=== PATIENT | male | born 1955 | race Caucasian/White ===

== ENCOUNTER 2018-01-11 16:32 | Inpatient (IN) | payer MEDICAID ==
--- NOTE | 2018-01-11 16:39 | EDPHY ---
H & P Time Seen by Provider: 01/11/18 16:38 HPI/ROS: HPI CHIEF COMPLAINT: Left knee pain fall skateboard HISTORY OF PRESENT ILLNESS: This patient is 62-year-old male he is otherwise healthy does not take any daily medications he presents emergency room after he fell while skateboarding. This happened approximately an hour ago he fell on his left knee. States his leg went behind him when he fell. He now has pain 6/ 10 to left knee and proximal tib-fib. Denies any other areas of trauma or pain. He was helmeted. Denies head strike or LOC. Denies chest pain or shortness of breath. He arrives by private vehicle with an obvious swelling and deformity to the left knee. He is distally neurovascular intact. Past Medical History: No significant medical history Past Surgical History: No significant surgical history Social History: Retired, just moved here from [place], denies drugs alcohol tobacco. Family History: Noncontributory ROS REVIEW OF SYSTEMS: A comprehensive 10 point review of systems is otherwise negative aside from elements mentioned in the history of present illness. Exam Constitutional appears well nontoxic no acute distress triage nursing summary reviewed, vital signs reviewed, awake/alert. Eyes normal conjunctivae and sclera, EOMI, PERRLA. HENT normal inspection, atraumatic, moist mucus membranes, no epistaxis, neck supple/ no meningismus, no raccoon eyes. Respiratory clear to auscultation bilaterally, normal breath sounds, no respiratory distress, no wheezing. Cardiovascular rate normal, regular rhythm, no murmur, no edema, distal pulses normal. Gastrointestinal soft, non-tender, no rebound, no guarding, normal bowel sounds, no distension, no pulsatile mass. Genitourinary no CVA tenderness. Musculoskeletal left lower extremity: Obvious swelling and deformity to the left knee and proximal left tib-fib, soft tissue swelling over the lateral left tib-fib, neurovascular intact distally, range of motion but with pain, good distal pulse, good cap refill. no midline vertebral tenderness, full range of motion, no calf swelling, no tenderness of extremities, no meningismus, good pulses, neurovascularly intact. Skin pink, warm, & dry, no rash, skin atraumatic. Neurologic awake, alert and oriented x 3, AAOx3, moves all 4 extremities equally, motor intact, sensory intact, CN II-XII intact, normal cerebellar, normal vision, normal speech. Psychiatric normal mood/affect. Heme/Lymph/Immune no lymphadenopathy. Differential Diagnosis: Includes but is not limited to in a particular order patella fracture, patellar dislocation, knee fracture, knee contusion, tibia fracture, fibula fracture, soft tissue injury, contusion Medical Decision Making: Plan for this patient x-ray left knee and left tib- fib. Re-evaluation: X-ray reviewed of the right knee and right tib-fib: Shows depressed medial tibial plateau fracture. Additionally please see further details of x-ray reading for additional findings. Given the patient's x-ray findings I will consult Orthopedics. 1754: Spoke with Dr. Collins he is requesting an MRI of the joint. I have ordered this. He plans to operate tomorrow morning. He requested the MRI be done in the emergency room. 1800: Discussed extensively about the plan of care with this patient. Recommend hospital admission for pain control, NPO tonight for surgery tomorrow Dr. Collins. Discussed case with Dr. Collins. He requested MRI. I will order this. 1800: Patient be placed in a knee immobilizer for comfort. IV pain medicine has been order 100 mcg IV fentanyl here in emergency room. Compartments are soft at this time. Neurovascularly intact. 180: Spoke with Dr. Han, Agrees to admit. Source: Patient Constitutional: Initial Vital Signs Temperature (C) 36.4 C 01/11/18 16:33 Heart Rate 96 01/11/18 16:33 Respiratory Rate 20 01/11/18 16:33 Blood Pressure 166/84 H 01/11/18 16:33 O2 Sat (%) 97 01/11/18 16:33 O2 Delivery Mode Room Air Allergies/Adverse Reactions: No Known Allergies Allergy (Unverified 01/11/18 16:39) Home Medications: Medication Instructions Recorded Herbals/Supplements -Info Only 1 ea PO DAILY 01/11/18 Medical Decision Making - Data Points Laboratory Results: Laboratory Results 01/11/18 17:45 01/11/18 17:45 Medications Given: Acetaminophen (Tylenol) 1,000 mg PO Q8 [facility] Stop: 07/10/18 19:14 Last Admin: 01/13/18 22:04 Dose: 1,000 mg Aspirin (Aspirin) 325 mg PO DAILY [facility] Stop: 07/12/18 08:59 Last Admin: 01/13/18 08:36 Dose: 325 mg Enoxaparin Sodium (Lovenox) 40 mg SC DAILY [facility] Stop: 07/12/18 09:59 Last Admin: 01/13/18 14:06 Dose: 40 mg Hydromorphone/Sodium Chloride (Hydromorphone) 0.2 - 0.4 mg IVP Q4HRS PRN PRN Reason: Pain, Severe Unable to Take PO Stop: 01/21/18 19:14 Last Admin: 01/13/18 19:53 Dose: 0.4 mg Sodium Chloride (Ns) 1,000 mls @ 100 mls/hr IV CONT ANNE MARIE Stop: 07/11/18 07:14 Last Admin: 01/12/18 06:27 Dose: 1,000 mls Ondansetron HCl (Zofran) 4 mg IVP Q4HRS PRN PRN Reason: Nausea/Vomiting, Can't Take PO Stop: 07/10/18 19:14 Last Admin: 01/12/18 11:24 Dose: 4 mg Oxycodone HCl (Oxycodone Ir) 5 - 15 mg PO Q3HRS PRN PRN Reason: Pain, Severe Able to Take PO Stop: 01/21/18 19:14 Last Admin: 01/13/18 18:10 Dose: 15 mg Polyethylene Glycol (Miralax) 17 gm PO DAILY PRN; Protocol PRN Reason: Constipation Stop: 07/11/18 18:33 Last Admin: 01/13/18 08:38 Dose: 17 gm Potassium Chloride (Klor Packets) 20 meq PO DAILY [facility] Stop: 07/10/18 19:29 Last Admin: 01/13/18 08:36 Dose: 20 meq Senna/Docusate Sodium (Senokot-S) 1 - 2 tab PO BID ANNE MARIE PRN Reason: Protocol Stop: 07/11/18 20:59 Last Admin: 01/13/18 22:07 Dose: 2 tab Discontinued Medications Bupivacaine HCl/Epinephrine Bitart (Bupivacaine/Epi) Confirm Administered Dose 30 ml .ROUTE .STK-MED ONE Stop: 01/12/18 07:21 Last Admin: 01/12/18 08:25 Dose: 10 ml Cyclobenzaprine HCl (Flexeril) 10 mg PO TID [facility] Stop: 07/11/18 12:59 Last Admin: 01/12/18 12:54 Dose: 10 mg Fentanyl (Sublimaze) 100 mcg IVP EDNOW ONE Stop: 01/11/18 17:38 Last Admin: 01/11/18 17:47 Dose: 100 mcg Fentanyl (Sublimaze) 25 - 50 mcg IVP Q5M PRN PRN Reason: PAIN. Stop: 01/22/18 10:22 Last Admin: 01/12/18 10:20 Dose: 50 mcg Hydromorphone HCl (Dilaudid) 1 mg IVP EDNOW ONE Stop: 01/11/18 18:06 Last Admin: 01/11/18 18:07 Dose: 1 mg Hydromorphone HCl (Dilaudid) 1 mg IVP EDNOW ONE Stop: 01/11/18 18:06 Last Admin: 01/11/18 18:11 Dose: Not Given Hydromorphone HCl (Dilaudid) 1 mg IVP EDNOW ONE Stop: 01/11/18 19:47 Last Admin: 01/11/18 20:48 Dose: 1 mg Hydromorphone/Sodium Chloride (Hydromorphone) 0.2 - 0.4 mg IVP Q10M PRN PRN Reason: PAIN. Stop: 01/22/18 10:21 Last Admin: 01/12/18 10:00 Dose: 0.2 mg Sodium Chloride (Ns) 1,000 mls @ 0 mls/hr IV EDNOW ONE; Wide Open PRN Reason: Protocol Stop: 01/11/18 17:38 Last Admin: 01/11/18 17:47 Dose: 1,000 mls Cefazolin Sodium (Cefazolin Syringe) 2 gm in 20 mls @ 200 mls/hr IVP ONCALL ONE Stop: 01/11/18 21:35 Last Admin: 01/12/18 08:14 Dose: 20 mls Lactated Ringer's (Lr) 1,000 mls @ 0 mls/hr IV ONCE ONE PRN Reason: Per Protocol Stop: 01/12/18 07:45 Last Admin: 01/12/18 10:42 Dose: 1,000 mls Cefazolin Sodium (Cefazolin Syringe) 2 gm in 20 mls @ 200 mls/hr IVP Q8HRS ANNE MARIE PRN Reason: Protocol Stop: 01/13/18 06:05 Last Admin: 01/13/18 05:58 Dose: 20 mls Lorazepam (Ativan Injection) 1 mg IVP EDNOW ONE Stop: 01/11/18 19:31 Last Admin: 01/11/18 19:30 Dose: 1 mg Methocarbamol (Robaxin) 750 mg PO TID [facility] Stop: 07/11/18 15:59 Last Admin: 01/13/18 08:36 Dose: 750 mg Methocarbamol (Robaxin) 1,000 mg PO TID [facility] Stop: 07/12/18 11:59 Last Admin: 01/13/18 16:23 Dose: Not Given Ondansetron HCl (Zofran) 4 mg IVP EDNOW ONE Stop: 01/11/18 17:38 Last Admin: 01/11/18 17:46 Dose: 4 mg Ondansetron HCl (Zofran) 4 mg IVP EDNOW ONE Stop: 01/11/18 19:47 Last Admin: 01/11/18 22:32 Dose: Not Given Oxycodone HCl (Oxycodone Ir) 5 - 10 mg PO Q3HRS PRN PRN Reason: Pain, Severe Able to Take PO Stop: 01/21/18 19:14 Last Admin: 01/12/18 22:13 Dose: 10 mg Departure - Departure Disposition: [facility] Acute Clinical Impression: Tibial plateau fracture, left Qualifiers: Encounter type: initial encounter Fracture type: closed Qualified Code(s): S82.142A - Displaced bicondylar fracture of left tibia, initial encounter for closed fracture Condition: Fair
[2018-01-11] MEDS ORDERED: ONDANSETRON 4 MG/2 ML VIAL IVP ONE ×2 (17:37→19:46)
[2018-01-11] MEDS ORDERED: fentaNYL 100 MCG/2 ML INJ IVP ONE (17:37)
[2018-01-11] MEDS ORDERED: NS 1,000 ML IV ONE (17:37)
[2018-01-11 17:54] LABS: PLATELET COUNT 155 10^3/uL (150-400)
[2018-01-11] MEDS ORDERED: HYDROmorphONE/DILAUDID 2 MG/ML INJ ONE (18:04)
[2018-01-11] MEDS ORDERED: HYDROmorphONE/DILAUDID 2 MG/ML INJ IVP ONE ×3 (18:05→19:46)
[2018-01-11 18:06] LABS: INR 1.02 (0.83-1.16); PROTIME(PATIENT) 13.6 SEC (12.0-15.0)
[2018-01-11] MEDS ORDERED: ONDANSETRON DISINTEGRATING 4 MG TAB PO PRN (19:15)
[2018-01-11] MEDS ORDERED: LORazepam 2 MG/ML INJ ONE (19:27)
[2018-01-11] MEDS ORDERED: LORazepam 2 MG/ML INJ IVP ONE (19:30)
--- NOTE | 2018-01-11 19:48 | GHP ---
[f rep st] HISTORY AND PHYSICAL DATE OF ADMISSION: 01/11/2018 HISTORY OF PRESENT ILLNESS: The patient is a 62-year-old gentleman with minimal past medical history who presents with a mechanical fall. He was riding a skateboard. He twisted and fell landing on hi s left knee. Films in the ER demonstrate a left-sided tibial plateau fracture. The patient describes good exercise tolerance with no cardiopulmonary symptoms at greater than 4 METS . He has no previous cardiac history nor does he have significant risk factors for coronary artery d isease. No fever, chills, nausea, vomiting, diarrhea. No bleeding problems. REVIEW OF SYSTEMS: Complete 10-point review of systems conducted. Negative except as noted in the H istory of Present Illness. PAST MEDICAL HISTORY: An episode of left-sided weakness that lasted for 3 hours and resolved spontan eously that had subsequent negative workup. None of that is available to me. ALLERGIES: None. HOME MEDICATIONS: None. 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 He quit drinking 2 years ago. He is a lifelon g nonsmoker. FAMILY HISTORY: Reviewed and unremarkable. PHYSICAL EXAMINATION: VITAL SIGNS: Temp 36.4, blood pressure 166/84, pulse 96, breathing 20 times a minute, 97% on room air. GENERAL: No acute distress. Sclerae anicteric. Oropharynx clear. Mucou s membranes moist. NECK: Supple without lymphadenopathy or JVD. LUNGS: Clear to auscultation bila terally. HEART: S1, S2. ABDOMEN: Soft, nontender, nondistended. EXTREMITIES: Left lower extremi ty is edematous and tender. There are a few minor abrasions but no significant lacerations. His fo ot is neurovascularly intact. LABORATORY: Sodium 141, potassium 3.2, chloride 105, bicarb 20, BUN 14, creatinine 0.8. Coags ester l. White count 16.6, hematocrit 43, platelets are 155,000. Tib-fib x-ray shows depressed comminuted lateral tibia plateau fracture and intra-articular fracture seen essentially medial of the midline as well as a longitudinal cortical avulsion fracture of the po sterior medial femoral condyle. I have discussed the case with Dr. Elmer Olivas. ASSESSMENT/PLAN: A 62-year-old gentleman with a tibial plateau fracture. 1. Tibial plateau fracture. Operative management is indicated. Dr. Tamayo will see him and operate on him tomorrow. 2. Preoperative cardiac evaluation. The patient can achieve greater than 4 METS with no cardiopulmo nary symptoms in the ER without further workup or intervention. EKG is pending. 3. Hypokalemia. Will replete now. 4. Pain. Scheduled Tylenol, p.r.n., oxycodone and Dilaudid. 5. Prophylaxis. Pharmacologic prophylaxis is indicated. Will hold tonight given need for surgery t omorrow. DISPOSITION: Inpatient status. /[id number]/MODL
[2018-01-11] MEDS: ONDANSETRON 4 MG/2 ML VIAL IVP PRN (20:48)
--- NOTE | 2018-01-11 20:53 | CPEKG ---
Heart Rate: 94 RR Interval: 638 P-R Interval: 176 QRSD Interval: 98 QT Interval: 376 QTC Interval: 471 P Broadway: 76 QRS Broadway: 24 T Wave Broadway: 22 EKG Severity - NORMAL ECG - EKG Impression: SINUS RHYTHM Electronically Signed By: Elmer Olivas 11-Jan-2018 22:29:51
[2018-01-11] MEDS ORDERED: ceFAZolin 2 GM/DEXTROSE 100 ML IV ONE (21:24)
[2018-01-11] MEDS ORDERED: ceFAZolin 2 GM/SWFI 2 GM/20 ML SYR IVP ONE (21:30)
--- NOTE | 2018-01-11 21:53 | GHP ---
[f rep st] PREOP HISTORY AND PHYSICAL DATE OF ADMISSION: 01/11/2018 REPORT TITLE: ORTHOPEDIC CONSULTATION BODY AFTER REPORT TITLE: DIAGNOSES: 1. Left tibial plateau fracture. 2. Left inferior pole fracture to the patella. 3. Medial collateral ligament strain with small cortical avulsion fracture off distal medial femoral epicondylar area. 4. Posterior cruciate ligament avulsion off posterior femur. 5. Probable lateral meniscus tear. HISTORY OF PRESENT ILLNESS: Patient is a 62-year-old gentleman who was otherwise healthy. 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 He was on his skateboard when he fell going over 30 miles an hour. His leg jemal t behind him, and he twisted his knee. He had severe pain and was unable to bear weight. He was hel meted and did not strike his head and did not lose consciousness. On admission, he was complaining o f some low back pain. His main complaint was severe left knee pain. PAST MEDICAL HISTORY: Insignificant. PAST SURGICAL HISTORY: None. SOCIAL HISTORY: Single, retired, has a son who lives elsewhere. REVIEW OF SYSTEMS: Negative. PHYSICAL EXAM: GENERAL APPEARANCE: Patient alert, oriented, cooperative with exam. CHEST: Clear. CARDIAC: Regular rate and rhythm. ABDOMEN: Nontender. EXTREMITIES: Examination of the lower ext remities reveals 1+ dorsalis pedis and posterior tibialis pulse on the left, 2+ on the right. Swolle n right knee, mildly angulated at the metaphyseal area. Tenderness to palpation around the left knee . 2+ effusion. IMAGING STUDIES: The films show a depressed, comminuted, lateral tibial plateau fracture that is fra gmented. There is a fracture that extends medially toward the medial tibial spine and to the opposit e side of the ACL and tibial spine attachment. There is an avulsion fracture off the posterior femor al condylar area suggestive for a PCL avulsion. There is a fracture off the inferior patella where t he patella originates. It is not displaced. There is probable avulsion injury of medial collateral ligament with a small cortical infarction off the medial femoral condyle. ASSESSMENT: Severe lateral tibial plateau fracture that will require open reduction and internal fix ation to reestablish the articular congruency. Intraoperative evaluation will be performed to assess integrity of the cruciates and medial collateral ligament which I suspect is partially disrupted at its femoral attachment with a small cortical avulsion fracture in the area. The posterior cruciate l igament is also disrupted off the posterior aspect of the femur but not significantly displaced. Thi s will not be addressed in the immediate operative setting. Assessment will be made of the infrapate llar tendon in its proximal attachment where there is a very small cortical avulsion fracture off the tip of the patella. There is a possibility of the tibial plateau fracture requiring an iliac crest bone graft and/or allograft to reconstitute cavitation in the proximal tibial metaphysis after elevat ion of the bone fragments. Patient will be placed n.p.o. Anticipate surgical treatment tomorrow. W ill ice and elevate tonight. /[id number]/MODL
[2018-01-11] MEDS: ACETAMINOPHEN 500 MG TAB PO SCH ×2 (22:27→22:31)
[2018-01-11] MEDS: oxyCODONE IR 5 MG TAB PO PRN (22:28)
[2018-01-11] MEDS: POTASSIUM CL 20 MEQ PKT PO SCH (22:29)
--- NOTE | 2018-01-12 00:52 | PDMN ---
Medical Necessity Medical necessity: C/M review: Patient meets INPT crtieria under [facility] Musculoskeletal disease GRG (Left tibial plateau fracture): Acute depressed comminuted left lateral tibia plateau fracture and intra-articular fracture seen essentially medial of the midline as well as a longtitudinal cortical avulsion fracture f the posterior medical femoral condyle on xray, hypokalemia, K 3.2 requiring planned 01/12/2018 surgical intervention, ongoing preop IV fluids , oral potassium repletion, pain management - scheduled oral Tylenol, and oral oxycodone, IV Dilaudid as needed MD anticipates > 2 MN LOS for ongoing med nec for eval and TX of above.
[2018-01-12] MEDS: ACETAMINOPHEN 500 MG TAB PO SCH ×3 (06:26→22:13)
[2018-01-12] MEDS ORDERED: NS 1,000 ML IV SCH (07:15)
[2018-01-12] MEDS ORDERED: BUPIVACAINE/EPI 0.5% 30 ML SDV ONE (07:20)
[2018-01-12] MEDS ORDERED: LR 1,000 ML IV ONE (07:44)
[2018-01-12] MEDS ORDERED: MIDAZOLAM 2 MG/2 ML VIAL ONE (07:54)
[2018-01-12] MEDS ORDERED: PROPOFOL 200 MG/20 ML VIAL ONE (07:55)
[2018-01-12] MEDS ORDERED: fentaNYL 100 MCG/2 ML INJ ONE ×2 (07:55→09:53)
--- NOTE | 2018-01-12 08:19 | PDANEPAE ---
ANE Past Medical History - Pulmonary History Hx Oxygen in Use at Home: No Hx Sleep Apnea: No Sleep Apnea Screening Result - Last Documented: Negative - Endocrine History Hx Diabetes: No ANE Review of Systems Review of Systems: ANE Patient History - Allergies Allergies/Adverse Reactions: No Known Allergies Allergy (Unverified 01/11/18 16:39) - Home Medications Home Medications: Herbals/Supplements -Info Only 1 ea PO DAILY 01/11/18 [Last Taken 01/11/18] - NPO status NPO Since - Liquids (Date): 01/12/18 NPO Since - Liquids (Time): 00:00 NPO Since - Solids (Date): 01/12/18 NPO Since - Solids (Time): 00:00 - Anes Hx Anes Hx: no prior problems - Smoking Hx Smoking Status: Never smoked ANE Labs/Vital Signs - Labs Result Diagrams: 01/11/18 17:45 01/11/18 17:45 - Vital Signs Blood Pressure: 94/55 Heart Rate: 89 Respiratory Rate: 18 O2 Sat (%): 98 Height: 182.88 cm Weight: 61.235 kg ANE Physical Exam - Airway Mallampati Score: Class 1 - ASA Status ASA Status: I, E ANE Anesthesia Plan Anesthesia Plan: GA w LMA
[2018-01-12] MEDS: POTASSIUM CL 20 MEQ PKT PO SCH ×2 (08:45→17:51)
[2018-01-12] MEDS ORDERED: MEPERIDINE 25 MG/ML SYR IVP PRN (09:11)
[2018-01-12] MEDS ORDERED: PROMETHAZINE HCL 25 MG/ML INJ IVP PRN (09:11)
[2018-01-12] MEDS ORDERED: NALOXONE HCL 0.4 MG/ML INJ IVP PRN (09:11)
[2018-01-12] MEDS ORDERED: LR 500 ML IV PRN (09:11)
--- NOTE | 2018-01-12 09:12 | POSTANESTH ---
Post Anesthetic Evaluation Cardiovascular Status: Normal, Stable Respiratory Status: Normal, Stable Level of Consciousness/Mental Status: Can Participate in Eval Pain Control: Adequate, Prn Tx Ordered Nausea/Vomiting Control: Adequate, Prn Tx Ordered Complications Possibly Related to Anesthesia: None Noted
[2018-01-12] MEDS ORDERED: HYDROmorphONE/DILAUDID 2 MG/ML INJ ONE (09:17)
[2018-01-12] MEDS: HYDROmorphone HCL/NS 0.5 MG/ML SYR IVP PRN ×8 (09:20→16:45)
--- NOTE | 2018-01-12 09:20 | POSTOPPROG ---
Post Op Note Date of Operation: 01/12/18 Surgeon: Ulises oCllins Anesthesia: GET(General Endotracheal) Pre-op Diagnosis: Left Tibial Plateau Fracture Post-op Diagnosis: Left Tibial Plateau Fracture Procedure: Left Leg External Fixator for Tibial Plateau fracture bridging Inf/Abcess present in the surg proc area at time of surgery?: No Complications: None Specimen(s): None
--- NOTE | 2018-01-12 09:50 | GOP ---
[f rep st] OPERATIVE REPORT DATE OF OPERATION: 01/12/2018 SURGEON: Ulises Collins MD HOSPITAL FOOD SERVICE WORKER: Mary Mcgraw PA-C. ANESTHESIA: General. PREOPERATIVE DIAGNOSIS: Left comminuted tibial plateau fracture. POSTOPERATIVE DIAGNOSIS: Left comminuted tibial plateau fracture. PROCEDURE PERFORMED: Application of external fixator, left lower extremity (bridging femoral to tibi a). FINDINGS: DESCRIPTION OF PROCEDURE: Patient was taken to the operating room, administered general anesthesia, placed in the supine position. The left lower extremity was prepped and draped in normal sterile fas hion. Using the FluoroScan, we positioned our initial external fixator pins. They were placed throu gh the pin guide and the skin was marked. The incisions were made with a 15 blade. The pins were th en driven across the proximal femur x2. The pins were then placed in the tibia. Two incisions were made. The pin guide was used to drill the pins across the tibia. The fixator clamps were placed on the pins and tightened down. The 2 bridging clamps were then placed with the rods. The tibia was al igned using distraction. The clamps were then tightened down further. The pins were cut down to the appropriate length. Pin protectors were placed. The sterile compression dressing was applied. The posterior splint was applied. The patient tolerated procedure well, was transferred back to [facility] in stable condition. No operative complications. COMPLICATIONS: None. /[id number]/MODL
[2018-01-12] MEDS: fentaNYL 100 MCG/2 ML INJ IVP PRN ×2 (09:55→10:20)
[2018-01-12] MEDS: ONDANSETRON 4 MG/2 ML VIAL IVP PRN (11:24)
[2018-01-12] MEDS: oxyCODONE IR 5 MG TAB PO PRN ×4 (11:29→22:13)
[2018-01-12] MEDS ORDERED: CYCLOBENZAPRINE 10 MG TAB PO SCH (13:00)
--- NOTE | 2018-01-12 13:24 | HOSPPROG ---
Hospitalist Progress Note Assessment/Plan: Johnny is a 62-y/o M with no significant PMH but does report fhx osteoporosis. Mechanical fall off his skateboard with resultant L tibial plateau fx. #. L tibial plateau fx: reviewed Dr. Collins's consult and op notes and appreciate assistance also noted avulsion fx sugestive of PCL avulsion and patellar avulsion/MCL in currently in external fixator needs PT/OT consults #. pain: due to above will change from Flexeril to Robaxin due to patient's somnolence continue Oxy IR and Tylenol #. leukocytosis: likely in response to stress no e/o acute infection will recheck #. hypokalemia: on repletion protocol #. LOS: inpt for ongoing therapy and pain control Subjective: Notes L knee pain and fatigue. Objective: Vital Signs Temp Pulse Resp BP Pulse Ox 97.5 F 69 16 97/58 L 94 01/12/18 12:05 01/12/18 12:05 01/12/18 12:05 01/12/18 12:05 01/12/18 12:05 01/11/18 01/12/18 01/13/18 05:59 05:59 05:59 Intake Total 1120 Output Total 1000 5 Balance -1000 1115 PT 13.6 SEC (12.0-15.0) 01/11/18 17:45 INR 1.02 (0.83-1.16) 01/11/18 17:45 - Physical Exam Constitutional: appears nourished Eyes: PERRL Ears, Nose, Mouth, Throat: moist mucous membranes Cardiovascular: regular rate and rhythym, no murmur, rub, or gallop Respiratory: no respiratory distress Gastrointestinal: normoactive bowel sounds, soft, non-tender abdomen Neurologic: AAOx3 Psychiatric: interacting appropriately ICD10 Worksheet Patient Problems: Problems Problem Status Onset Tibial plateau fracture, left Acute
--- NOTE | 2018-01-12 14:12 | ASMTCMCOM ---
CM Note CM Note Notes: Pt was admitted with a L tibial plateau fx after falling off his skateboard. He had surgery and is currently in an external fixator with more surgery planned when swelling goes down. PT/OT evals pending. He goes by "Johnny." Pt is retired and moved to [place] relatively recently. 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 He lives alone in an apt and has no health insurance. His Medicare starts in Aug 2018. An email was sent to [employer] to screen him for Medicaid eligibility. He stated he has 2 neighbors who will be helpful to him and are listed in demographics. CM willf follow for any d/c needs. Date Signed: 01/12/2018 02:12 PM Electronically Signed By:CHEVY Izaguirre
[2018-01-12] MEDS: METHOCARBAMOL 750 MG TAB PO SCH ×2 (15:04→22:13)
[2018-01-12] MEDS: ceFAZolin 2 GM/SWFI 2 GM/20 ML SYR IVP SCH ×2 (15:05→22:30)
[2018-01-12] MEDS ORDERED: LACTULOSE 20 GM/30 ML UDCUP PO PRN (18:34)
[2018-01-12] MEDS ORDERED: BISACODYL 10 MG SUPP PR PRN (18:34)
[2018-01-12] MEDS ORDERED: MAGNESIUM HYDROXIDE 30 ML UDCUP PO PRN (18:34)
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
[2018-01-12] MEDS: SENNOSIDES/DOCUSATE SODIUM TAB PO SCH (22:30)
[2018-01-12] MEDS ORDERED: chlorproMAZINE HCL 25 MG TAB PO PRN (22:51)
[2018-01-13 04:50] LABS: PLATELET COUNT 83 10^3/uL (150-400)
[2018-01-13] MEDS: ACETAMINOPHEN 500 MG TAB PO SCH ×3 (05:58→22:04)
[2018-01-13] MEDS: ceFAZolin 2 GM/SWFI 2 GM/20 ML SYR IVP SCH (05:58)
[2018-01-13] MEDS: HYDROmorphone HCL/NS 0.5 MG/ML SYR IVP PRN ×2 (06:48→19:53)
--- NOTE | 2018-01-13 07:59 | SOAPPROG ---
SOAP Progress Note Assessment/Plan: Assessment: new finding of left wrist pain. pain management difficult. no evidence of compartment syndrome Plan: xray left wrist keep elevated check CT brace back if uncomfortable 01/13/18 07:56 Subjective: Complaints off left wrist pain and leg pain Objective: Vital Signs Temp Pulse Resp BP Pulse Ox 36.8 C 92 16 101/58 L 94 01/13/18 07:39 01/13/18 07:39 01/13/18 07:39 01/13/18 07:39 01/13/18 07:39 Laboratory Results 01/13/18 04:15 01/12/18 01/13/18 01/14/18 05:59 05:59 05:59 Intake Total 3520 Output Total 1000 3405 Balance -1000 115 PT 13.6 SEC (12.0-15.0) 01/11/18 17:45 INR 1.02 (0.83-1.16) 01/11/18 17:45 VSS \ CSMT intact, Wrist is painful and has mild swelling ICD10 Worksheet Patient Problems: Problems Problem Status Onset Tibial plateau fracture, left Acute
[2018-01-13] MEDS: POTASSIUM CL 20 MEQ PKT PO SCH (08:36)
[2018-01-13] MEDS: ASPIRIN 325 MG TAB PO SCH (08:36)
[2018-01-13] MEDS: SENNOSIDES/DOCUSATE SODIUM TAB PO SCH ×2 (08:36→22:07)
[2018-01-13] MEDS: METHOCARBAMOL 750 MG TAB PO SCH (08:36)
[2018-01-13] MEDS: oxyCODONE IR 5 MG TAB PO PRN ×2 (08:37→18:10)
[2018-01-13] MEDS: POLYETHYLENE GLYCOL 3350 17 GM PKT PO PRN (08:38)
--- NOTE | 2018-01-13 09:33 | HOSPPROG ---
Hospitalist Progress Note Assessment/Plan: Johnny is a 62-y/o M with no significant PMH but does report fhx osteoporosis. Mechanical fall off his skateboard with resultant L tibial plateau fx. #. L tibial plateau fx: reviewed Dr. Collins's consult and op notes and appreciate assistance also noted avulsion fx sugestive of PCL avulsion and patellar avulsion/MCL in currently in external fixator needs PT/OT consults #. pain: due to above will change from Flexeril to Robaxin due to patient's somnolence continue Oxy IR and Tylenol #. L wrist pain: will start with XR and consider CT if it fails to identify fx #. L2 compression fx: appreciate NSG seeing they recommend Janie brace for pain control only pt reports pain is currently tolerable #. leukocytosis: likely in response to stress no e/o acute infection normalized on recheck #. anemia: likely ABL expected postop will recheck tomorrow #. thrombocytopenia: will dose Lovenox today and recheck tomorrow #. hypokalemia: on repletion protocol #. DVT ppx: start Enoxaparin now #. financial: pt uninsured requesting CM to help with possible emergency Medicaid or other resources #. LOS: inpt for ongoing therapy and pain control Subjective: Pain is under control currently. Back hurts with some movements. Objective: Vital Signs Temp Pulse Resp BP Pulse Ox 98.2 F 92 16 101/58 L 94 01/13/18 07:39 01/13/18 07:39 01/13/18 07:39 01/13/18 07:39 01/13/18 07:39 Laboratory Results 01/13/18 04:15 01/13/18 04:15 01/12/18 01/13/18 01/14/18 05:59 05:59 05:59 Intake Total 3520 Output Total 1000 3405 Balance -1000 115 PT 13.6 SEC (12.0-15.0) 01/11/18 17:45 INR 1.02 (0.83-1.16) 01/11/18 17:45 - Physical Exam Constitutional: no apparent distress, appears nourished Eyes: PERRL, anicteric sclera Cardiovascular: regular rate and rhythym, no murmur, rub, or gallop Respiratory: no respiratory distress Gastrointestinal: normoactive bowel sounds, soft, non-tender abdomen Skin: warm, normal color, other (L leg wrapped and with external fixator) Neurologic: AAOx3 Psychiatric: interacting appropriately ICD10 Worksheet Patient Problems: Problems Problem Status Onset Tibial plateau fracture, left Acute
[2018-01-13] MEDS ORDERED: METHOCARBAMOL 750 MG TAB PO SCH (11:50)
[2018-01-13] MEDS: METHOCARBAMOL 500 MG TAB PO SCH ×3 (12:51→22:00)
[2018-01-13] MEDS: ENOXAPARIN 40 MG/0.4 ML SYR SC SCH (14:06)
[2018-01-14] MEDS: ACETAMINOPHEN 500 MG TAB PO SCH ×3 (05:24→21:43)
[2018-01-14 05:31] LABS: PLATELET COUNT 79 10^3/uL (150-400)
--- NOTE | 2018-01-14 07:49 | SOAPPROG ---
SOAP Progress Note Assessment/Plan: Assessment: new finding of left wrist pain. XRAYS NEGATIVE. pain management difficult. no evidence of compartment syndrome Plan: xray left wrist, NEGATIVE. WILL GET SUPPORT FOR SPRAIN keep LEG elevated brace back if uncomfortable SOCIAL SERVICE CONSULT ANTICIPATE DC TO REHAB HE HAS POOR MOBILITY SURGERY IN 10 DAYS ONCE SWELLING SUBSIDES 01/13/18 07:56 01/14/18 07:46 Subjective: C/O PAIN AROUND PINS WHEN MOVING WRIST STILL UNCOMFORTABLE BACK IS BETTER BUT STILL UNCOMFORTABLE WHEN HE TRIES TO GET UP Objective: Vital Signs Temp Pulse Resp BP Pulse Ox 36.4 C 96 16 103/56 L 95 01/14/18 07:32 01/14/18 07:32 01/14/18 07:32 01/14/18 07:32 01/14/18 07:32 Laboratory Results 01/14/18 04:27 01/13/18 04:15 01/13/18 01/14/18 01/15/18 05:59 05:59 05:59 Intake Total 3520 1500 650 Output Total 3405 2400 Balance 115 -900 650 PT 13.6 SEC (12.0-15.0) 01/11/18 17:45 INR 1.02 (0.83-1.16) 01/11/18 17:45 CSMT OK MOVES TOES WELL VERY ANXIOUS ICD10 Worksheet Patient Problems: Problems Problem Status Onset Tibial plateau fracture, left Acute
[2018-01-14] MEDS: ENOXAPARIN 40 MG/0.4 ML SYR SC SCH (08:10)
[2018-01-14] MEDS: SENNOSIDES/DOCUSATE SODIUM TAB PO SCH ×2 (08:12→21:44)
[2018-01-14] MEDS: METHOCARBAMOL 500 MG TAB PO SCH ×3 (08:14→21:43)
[2018-01-14] MEDS: ASPIRIN 325 MG TAB PO SCH (08:14)
[2018-01-14] MEDS: oxyCODONE IR 5 MG TAB PO PRN ×4 (08:16→21:43)
[2018-01-14] MEDS: POTASSIUM CL 20 MEQ PKT PO SCH (08:16)
--- NOTE | 2018-01-14 08:28 | HOSPPROG ---
Hospitalist Progress Note Assessment/Plan: Johnny is a 62-y/o M with no significant PMH but does report fhx osteoporosis. Mechanical fall off his skateboard with resultant L tibial plateau fx. Today is my first encounter with the patient, chart reviewed. #. L comminuted tibial plateau fx: reviewed Dr. Collins's consult and op notes and appreciate assistance also noted avulsion fx suggestive of PCL avulsion and patellar avulsion/MCL in s/p external fixator placement therapies are recommending SNF plan is for surgery in 10 days when swelling decreases #. pain: due to above will change from Flexeril to Robaxin due to patient's somnolence continue Oxy IR and Tylenol #. L wrist pain: x ray shows nothing acute #. L2 compression fx: appreciate NSG seeing they recommend Janie brace for pain control only pt reports pain is currently tolerable #. leukocytosis: likely in response to stress no e/o acute infection normalized on recheck #. anemia: stable #. thrombocytopenia: ongoing #. hypokalemia: on repletion protocol #. DVT ppx: Enoxaparin #. dispo; very difficult situation, patient is relatively new to the [facility]. Hasn't establish a local support system/ He lives alone, has stairs to go up and is NWB to left lower extremity. Reviewed with CM because he is uninsured. Subjective: Johnny said pain gets out of control easily. Tearful about being uninsured, worried about bills, how he will get food. Objective: Vital Signs Temp Pulse Resp BP Pulse Ox 36.4 C 96 16 103/56 L 95 01/14/18 07:32 01/14/18 07:32 01/14/18 07:32 01/14/18 07:32 01/14/18 07:32 Laboratory Results 01/14/18 04:27 01/13/18 04:15 01/13/18 01/14/18 01/15/18 05:59 05:59 05:59 Intake Total 3520 1500 650 Output Total 3405 2400 Balance 115 -900 650 PT 13.6 SEC (12.0-15.0) 01/11/18 17:45 INR 1.02 (0.83-1.16) 01/11/18 17:45 - Physical Exam Constitutional: uncomfortable, other (thin), No not in pain Eyes: PERRL Ears, Nose, Mouth, Throat: hearing normal Respiratory: no respiratory distress Skin: warm Musculoskeletal: generalized weakness Neurologic: AAOx3 Psychiatric: interacting appropriately, depressed ICD10 Worksheet Patient Problems: Problems Problem Status Onset Tibial plateau fracture, left Acute
--- NOTE | 2018-01-14 15:10 | ASMTCMCOM ---
CM Note CM Note Notes: Pt approved for Medicaid, pt agreeable to 30 day Medicaid SNF stay. ULTC 100 submitted to [facility] today and referrals sent to Joy Harmon and Guillermo Mahmood. CM to follow. Date Signed: 01/14/2018 03:09 PM Electronically Signed By:CHEVY Lynch
[2018-01-15] MEDS: ACETAMINOPHEN 500 MG TAB PO SCH ×4 (06:37→21:14)
[2018-01-15] MEDS: oxyCODONE IR 5 MG TAB PO PRN ×4 (07:15→16:53)
[2018-01-15] MEDS: ASPIRIN 325 MG TAB PO SCH (08:48)
[2018-01-15] MEDS: SENNOSIDES/DOCUSATE SODIUM TAB PO SCH ×2 (08:48→21:14)
[2018-01-15] MEDS: POTASSIUM CL 20 MEQ PKT PO SCH (08:48)
[2018-01-15] MEDS: ENOXAPARIN 40 MG/0.4 ML SYR SC SCH (08:48)
[2018-01-15] MEDS: METHOCARBAMOL 500 MG TAB PO SCH ×3 (08:48→21:14)
--- NOTE | 2018-01-15 09:42 | HOSPPROG ---
Hospitalist Progress Note Assessment/Plan: Johnny is a 62-y/o M with no significant PMH but does report fhx osteoporosis. Mechanical fall off his skateboard with resultant L tibial plateau fx. #. L comminuted tibial plateau fx: reviewed Dr. Collins's consult and op notes and appreciate assistance also noted avulsion fx suggestive of PCL avulsion and patellar avulsion/MCL in s/p external fixator placement therapies are recommending SNF plan is for surgery in 10 days when swelling decreases #. pain: due to above will change from Flexeril to Robaxin due to patient's somnolence continue Oxy IR and Tylenol #. L wrist pain: x ray shows nothing acute #. L2 compression fx: appreciate NSG seeing they recommend Janie brace for pain control only pt reports pain is currently tolerable #. leukocytosis: likely in response to stress no e/o acute infection normalized on recheck #. anemia: stable #. thrombocytopenia: ongoing #. hypokalemia: on repletion protocol #. DVT ppx: Enoxaparin #. dispo: pending, Medicaid hopefully, further discuss w CM, will check cbc and K level in a.m. Subjective: Johnny says he can tolerate his pain when less than 5. Not c/o pain during my evaluation Objective: Vital Signs Temp Pulse Resp BP Pulse Ox 36.5 C 97 16 89/59 L 97 01/15/18 07:22 01/15/18 07:22 01/15/18 07:22 01/15/18 07:22 01/15/18 07:22 Laboratory Results 01/14/18 04:27 01/13/18 04:15 01/14/18 01/15/18 01/16/18 05:59 05:59 05:59 Intake Total 1500 2050 Output Total 2400 2800 Balance -900 -750 PT 13.6 SEC (12.0-15.0) 01/11/18 17:45 INR 1.02 (0.83-1.16) 01/11/18 17:45 - Physical Exam Constitutional: other (thin) Eyes: PERRL Ears, Nose, Mouth, Throat: hearing normal Cardiovascular: regular rate and rhythym Respiratory: no respiratory distress Gastrointestinal: normoactive bowel sounds Skin: warm, other (good cms on left foot) Musculoskeletal: generalized weakness Neurologic: AAOx3 Psychiatric: interacting appropriately ICD10 Worksheet Patient Problems: Problems Problem Status Onset Tibial plateau fracture, left Acute
--- NOTE | 2018-01-15 12:09 | SOAPPROG ---
SOAP Progress Note Assessment/Plan: Assessment/Plan: Johnny is a 62-y/o M with no significant PMH but does report fhx osteoporosis. Mechanical fall off his skateboard with resultant L tibial plateau fx s/p Ex- fix by Dr. Collins. #. L comminuted tibial plateau fx: maintain ex-fix. Clean around pin sites with dry dressing. No signs of infection/compartment syndrome. NWB to left lower extremity. Also noted avulsion fx suggestive of PCL avulsion and patellar avulsion/MCL Therapies are recommending SNF Plan is for surgery in 10 days when swelling decreases #. DVT prophylaxis: SCDs on non op leg, ELSA hose, IS, Lovenox. #. pain: well controlled. #. L wrist pain: x ray shows no fractures, malalignments or deformities. #. L2 compression fx: appreciate NSG seeing they recommend Janie brace for pain control only #. leukocytosis: continue plan per hospitalists. #. anemia: continue plan per hospitalists. #. thrombocytopenia: ongoing #. hypokalemia: on repletion protocol #. dispo: pending, Medicaid hopefully, further discuss w Patient/plan discussed with Dr. Collins. Subjective: Doing well, pain well controlled. Compliant in NWB. Denies fever, chills, NVD, change in heat/color around wound sites, abnormal bleeding/oozing/discharge. Objective: Vital Signs Temp Pulse Resp BP Pulse Ox 36.6 C 78 16 97/68 L 90 L 01/15/18 11:12 01/15/18 11:12 01/15/18 11:12 01/15/18 11:12 01/15/18 11:12 Laboratory Results 01/14/18 04:27 01/13/18 04:15 01/14/18 01/15/18 01/16/18 05:59 05:59 05:59 Intake Total 1500 2050 Output Total 2400 2800 Balance -900 -750 PT 13.6 SEC (12.0-15.0) 01/11/18 17:45 INR 1.02 (0.83-1.16) 01/11/18 17:45 Alert, able to respond appropriately to questions. NAD, non labored breathing. Afebrile. Left lower tib: Ex-fix in place, no signs of infection, compartments soft. DNVI b/l in lower extremities with brisk cap refill. ICD10 Worksheet Patient Problems: Problems Problem Status Onset Tibial plateau fracture, left Acute
--- NOTE | 2018-01-15 14:34 | ASMTCMCOM ---
CM Note CM Note Notes: [employer] was here today to screen patient for [facility] Medicaid benefits. He does not qualify, which means that he does not have insurance coverage for a SNF. When I spoke with Woody at [facility], she said that room & board/nursing/meds would cost about $8,000-10,000/month and does not include PT/OT. Patient's surgery is scheduled for 10 days from now, pending a decrease in inflammation. He may need to stay here until then since, according to RN and hospitalist, he has very limited mobility and would be unable to care for himself at home. Case Management will follow. He was also visited by an [facility] tallow maker, Nicole Ortega [phone]. I called her and left a message to see Date Signed: 01/15/2018 02:34 PM Electronically Signed By:Reena Rosenthal RN
--- NOTE | 2018-01-15 16:30 | ASMTCMCOM ---
NATHALY Note NATHALY Note Notes: A potential solution to this discharge may be [facility] Inpatient Rehab. Patient's surgery is scheduled for 01/25. Margoth from Rehab would consider patient if he had a plan in place in the case that he was discharged from Rehab before his surgery. Ideally, he would rehabilitate to the point that he could navigate the stairs leading to his apartment. If he is unable to do this, Margoth requests that he have alternate accommodations figured out. I explained all of this to patient, and he understood. He is limited by the fact that he just moved here and does not know anyone. He felt that he had one friend he could ask. He was also amenable to paying for a hotel for a few nights if he had to. I believe that this is the best discharge plan, so we will help accommodate however we can. Date Signed: 01/15/2018 04:29 PM Electronically Signed By:Reena Rosenthal RN
[2018-01-15] MEDS: POLYETHYLENE GLYCOL 3350 17 GM PKT PO PRN (21:14)
[2018-01-15 21:31] VITALS: PULSE 86
[2018-01-16] MEDS: oxyCODONE IR 5 MG TAB PO PRN ×4 (00:48→15:54)
[2018-01-16 05:02] LABS: PLATELET COUNT 140 10^3/uL (150-400)
[2018-01-16] MEDS: POLYETHYLENE GLYCOL 3350 17 GM PKT PO PRN (07:42)
[2018-01-16] MEDS: ACETAMINOPHEN 500 MG TAB PO SCH ×2 (07:42→14:39)
[2018-01-16] MEDS: METHOCARBAMOL 500 MG TAB PO SCH ×2 (07:43→14:39)
[2018-01-16] MEDS: SENNOSIDES/DOCUSATE SODIUM TAB PO SCH (07:43)
[2018-01-16] MEDS: POTASSIUM CL 20 MEQ PKT PO SCH (07:45)
[2018-01-16] MEDS: ENOXAPARIN 40 MG/0.4 ML SYR SC SCH (07:45)
[2018-01-16] MEDS: ASPIRIN 325 MG TAB PO SCH (07:46)
--- NOTE | 2018-01-16 07:52 | SOAPPROG ---
SOAP Progress Note Assessment/Plan: Assessment: Assessment/Plan: Left comminuted tibial plateau fx: maintain ex-fix. Clean around pin sites with dry dressing Avulsion fracture suggestive of PCL avulsion and patellar avulsion/MCL NWB to left lower extremity Therapies are recommending SNF Pain medicine as needed Plan is for surgery in about 10 days from ex-fix placement on 01/12, once swelling decreases DVT prophylaxis: SCDs on non op leg, ELSA hose, Lovenox Left wrist pain: x-ray negative for any fractures, malalignments or deformities. L2 compression fx: appreciate NSG seeing they recommend Janie brace for pain control only Discharge planning: pending, Medicaid hopefully, further discuss with case management Subjective: 62 year old male that is POD# 4 from ex-fix placement left lower extremity for a left tibial plateau fracture. Patient states he does have pain but it is controlled with pain medicine. Objective: Vital Signs Temp Pulse Resp BP Pulse Ox 36.4 C 86 15 103/59 L 96 01/16/18 00:00 01/16/18 00:00 01/16/18 00:00 01/16/18 00:00 01/16/18 00:00 Laboratory Results 01/16/18 04:40 01/16/18 04:40 01/15/18 01/16/18 01/17/18 05:59 05:59 05:59 Intake Total 2050 1200 Output Total 2800 3800 Balance -750 -2600 PT 13.6 SEC (12.0-15.0) 01/11/18 17:45 INR 1.02 (0.83-1.16) 01/11/18 17:45 Physical exam of the left lower extremity: ex-fix in good position. Pin sites without erythema or signs of infection. Patient is able to move all 5 toes. Calf is soft, no signs of compartment syndrome. NVI. ICD10 Worksheet Patient Problems: Problems Problem Status Onset Tibial plateau fracture, left Acute
[2018-01-16 08:32] VITALS: BP 108/67; RESP 16; TEMP 98; O2SAT 95
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
--- NOTE | 2018-01-16 10:42 | PDIAF ---
- Diagnosis Diagnosis: left communited tibial plateau fx s/p external fixator Code Status: Full Code - Medication Management Discharge Medications: Medications to Continue on Transfer Acetaminophen [Tylenol ES 500 mg (*)] 1,000 mg PO Q8 tab 01/16/18 [Last Taken Unknown] Enoxaparin [Lovenox 40 MG (*)] 40 mg SC DAILY syr 01/16/18 [Last Taken Unknown] Methocarbamol [Robaxin 500 mg (*)] 750 mg PO TID tab 01/16/18 [Last Taken Unknown] Polyethylene Glycol 3350 [Miralax 17 gm (*)] 17 gm PO DAILY PRN pkt 01/16/18 [ Last Taken Unknown] Potassium Chloride Po [Klor Packets 20 meq (*)] 20 meq PO DAILY pkt 01/16/18 [ Last Taken Unknown] Sennosides/Docusate Sodium [Senokot-S] 1 - 2 tab PO BID tab 01/16/18 [Last Taken Unknown] oxyCODONE IR [Oxycodone Ir (*)] 5 - 15 mg PO Q3HRS PRN tab 01/16/18 [Last Taken Unknown] Discharge Medications: Refer to the Discharge Home Medication list for PRN reason. - Orders Services needed: Physical Therapy, Occupational Therapy Diet Recommendation: no restrictions on diet Diet Texture: Regular Texture Diet Activity/Weight Bearing Restrictions: non weight bearing to left lower extremity / will need surgery for repair in approximately a week with Dr Collins. Sam farmer day of surgery. - Follow Up Care Current Providers and Referrals: NONE *PRIMARY CARE P,. [Primary Care Provider] - As per Instructions Ulises Collins MD [Medical Doctor] -
--- NOTE | 2018-01-16 11:42 | GDS ---
[f rep st] DISCHARGE SUMMARY DISCHARGE DIAGNOSES: 1. Left comminuted tibial plateau fracture, status post external fixator placement. 2. Pain due to this. 3. Left wrist pain. 4. Lumbar level 2 compression fracture. 5. Leukocytosis. 6. Anemia. 7. Thrombocytopenia. 8. Hypokalemia. CONSULTATIONS: 1. Dr. Ulises Collins. 2. Dr. Charles Leon. HISTORY OF PRESENT ILLNESS: Briefly, the patient is a 62-year-old male without any significant past medical history, but reports a family history of osteoporosis. He had a mechanical fall from skatebo rikki of a skateboard with a resultant left tibial plateau fracture. He was admitted and seen and eval uated by Dr. Collins. He placed an external fixator. The plan is once his swelling goes down, Dr. Elvis mello will do surgery. In addition, it was noted that he had an L2 compression fracture. He was evalua fabiola and seen by Dr. Charles Leon. The patient is not having any significant pain. Recommendation is a [place] brace for pain control only. HOSPITAL COURSE BY PROBLEM: 1. Left comminuted tibial plateau fracture: He will go to inpatient rehabilitation for strengthenin g. The plan is for surgery in 10 days. 2. Pain: Well managed with scheduled Tylenol and OxyIR. 3. Left wrist pain: X-ray shows nothing acute. 4. L2 compression fracture: Pain is not significant in that area of his back. He can follow up wit h Neurosurgery if he should have further pain. 5. Leukocytosis: This stabilized. 6. Anemia: Stable. 7. Thrombocytopenia: Better today. 8. Hypokalemia: He will be on scheduled potassium daily. DISCHARGE CONDITION: Stable. Blood pressure is 108/67, heart rate is 86, respiratory rate is 16, O2 saturation on 0.5 L is 95%, temperature 36.7 Celsius. MEDICATIONS AT DISCHARGE: Please see the EMR. DISCHARGE INSTRUCTIONS: 1. Nonweightbearing to the left lower extremity. 2. Hold Lovenox on the day of surgery. 3. He will be returning to the hospital in the next 7-10 days for further surgery. BILLING: Greater than 30 minutes discharging and coordinating patient's care. /[id number]/MODL
--- NOTE | 2018-01-16 15:24 | ASMTCMCOM ---
CM Note CM Note Notes: Pt medically stable for d/c to [facility] inpatient rehab. Unknown if pt will still be at [facility] by the time he is ready for surgery. Pt has reached out to friends to see if he can find a place to stay and called the [facility] to determine current room availability and rates in case he needs to d/c to hotel since he has 16 stairs at his home. Medicaid stretcher scheduled with [facility] for 1825. BRAD Viera to call report. Date Signed: 01/16/2018 03:23 PM Electronically Signed By:CHEVY Lynch
--- NOTE | 2018-01-16 16:50 | ASDISCHSUM ---
Discharge Information Plan Status:Inpatient Rehab Medically Cleared to Leave: Discharge Date:01/16/2018 04:41 PM D/C Disposition:[facility] IP ADT D/C Disposition:[facility] IP Projected Discharge Date:01/16/2018 11:00 AM Transportation at D/C:ALS/BLS Discharge Delay Reason: Follow-Up Date:01/16/2018 11:00 AM Discharge Slot: Final Diagnosis: Placement Information Referral Type:*Skilled Nursing/SNF Referral ID:[id number] Provider Name: Address 1: Phone Number: Address 2: Fax Number: City: Selection Factors: State: Referral Type:Rehabilitation Hospital Referral ID:[id number] Provider Name:[facility] Address 1:[address] [place] [address] Phone Number: Address 2: Fax Number: [facility]:[place] Selection Factors: State:[place] Patient Contact Information Contact Name:LETI Relationship:Friend Address:[address] [place] [id number] Work Phone: City:[place] Alternate Phone: State/Zip Code:[place] [address] Email: Financial Information Financial Class:Medicaid Primary Plan Desc[place] Primary Plan Number:[id number] Secondary Plan Desc: Secondary Plan Number: Assessment Information [facility] CM Progress Note CM Note CM Note Notes: Pt was admitted with a L tibial plateau fx after falling off his skateboard. He had surgery and is currently in an external fixator with more surgery planned when swelling goes down. PT/OT evals pending. He goes by "Johnny." Pt is retired and moved to [place] relatively recently. 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 He lives alone in an apt and has no health insurance. His Medicare starts in Aug 2018. An email was sent to [employer] to screen him for Medicaid eligibility. He stated he has 2 neighbors who will be helpful to him and are listed in demographics. CM willf follow for any d/c needs. Date Signed: 01/12/2018 02:12 PM Electronically Signed By:CHEVY Izaguirre DARRELLE LACAndriy Length of stay for Answers: 4-6 days current admission Acuity / Level of Answers: Yes Care: Did the patient have an inpatient admission? # of Emergency department Answers: 1-2 visits in the last 6 months Score: 8 Date Signed: 01/16/2018 04:49 PM Electronically Signed By:CHEVY Lynch [facility] CM Progress Note CM Note CM Note Notes: Pt approved for Medicaid, pt agreeable to 30 day Medicaid SNF stay. ULTC 100 submitted to [facility] today and referrals sent to [facility] and [facility]. CM to follow. Date Signed: 01/14/2018 03:09 PM Electronically Signed By:CHEVY Lynch [facility] CM Progress Note CM Note CM Note Notes: [employer] was here today to screen patient for technician terminal and repeater Medicaid benefits. He does not qualify, which means that he does not have insurance coverage for a SNF. When I spoke with Woody at [facility], she said that room & board/nursing/meds would cost about $8,000-10,000/month and does not include PT/OT. Patient's surgery is scheduled for 10 days from now, pending a decrease in inflammation. He may need to stay here until then since, according to RN and hospitalist, he has very limited mobility and would be unable to care for himself at home. Case Management will follow. He was also visited by an [facility] chief controller station, Nicole Ortega [phone]. I called her and left a message to see Date Signed: 01/15/2018 02:34 PM Electronically Signed By:Reena Rosenthal RN [facility] CM Progress Note CM Note CM Note Notes: A potential solution to this discharge may be [facility] Inpatient Rehab. Patient's surgery is scheduled for 01/25. Margoth from Rehab would consider patient if he had a plan in place in the case that he was discharged from Rehab before his surgery. Ideally, he would rehabilitate to the point that he could navigate the stairs leading to his apartment. If he is unable to do this, Margoth requests that he have alternate accommodations figured out. I explained all of this to patient, and he understood. He is limited by the fact that he just moved here and does not know anyone. He felt that he had one friend he could ask. He was also amenable to paying for a hotel for a few nights if he had to. I believe that this is the best discharge plan, so we will help accommodate however we can. Date Signed: 01/15/2018 04:29 PM Electronically Signed By:Reena Rosenthal RN [facility] CM Progress Note CM Rizwan ANDERSEN Note Notes: Pt medically stable for d/c to [facility] inpatient rehab. Unknown if pt will still be at [facility] by the time he is ready for surgery. Pt has reached out to friends to see if he can find a place to stay and [facility] and rates in case he needs to d/c to [facility] since he has 16 stairs at his home. Medicaid stretcher scheduled with [facility] for 1615. BRAD Viera to call report. Date Signed: 01/16/2018 03:23 PM Electronically Signed By:CHEVY Lynch Intervention Information
== END 2018-01-16 16:41 | DRG 493 ==
LOC: F3N 20:53
PROVIDERS: ADMIT Internal Medicine; ATTEND Internal Medicine
PROC: 0QSH35Z Reposition Left Tibia with External Fixation Device, Percutaneous Approach (ICD-10-PCS; principal; 2018-01-12 08:00)
DX: S82.142A Displaced bicondylar fracture of left tibia, initial encounter for closed fracture (principal); S63.502A Unspecified sprain of left wrist, initial encounter; M48.56XA Collapsed vertebra, not elsewhere classified, lumbar region, initial encounter for fracture; S83.412A Sprain of medial collateral ligament of left knee, initial encounter; S83.522A Sprain of posterior cruciate ligament of left knee, initial encounter; S83.282A Other tear of lateral meniscus, current injury, left knee, initial encounter; D64.9 Anemia, unspecified; D69.6 Thrombocytopenia, unspecified; E87.6 Hypokalemia; Z82.62 Family history of osteoporosis; V00.131A Fall from skateboard, initial encounter; Y92.9 Unspecified place or not applicable; Y93.51 Activity, roller skating (inline) and skateboarding
CPT/HCPCS: 96374; 97110-GO; 97116-GP; 97162-GP; 97165-GO; 97530-GO; 97530-GP; 97535-GO; J0690; J1170; J1650; J2060; J2250; J2405; J2704; J3010

== ENCOUNTER 2018-01-16 15:13 | Inpatient (IN) | payer MEDICAID ==
[2018-01-16] MEDS ORDERED: POLYETHYLENE GLYCOL 3350 17 GM PKT PO PRN (18:18)
--- NOTE | 2018-01-16 19:04 | PDOREHIP ---
Admission [facility] - Admission - 3 Day Assessment Period Admission Date/Day 1: 01/16/18 Day 2: 01/17/18 Day 3: 01/18/18 - Active Diagnoses Comorbidities and Co-existing Conditions at Admission: 95768. None of the Above - Skin Conditions Unhealed Pressure Ulcer (1 or more/Stage 1 or >)-Admission: 0. No
[2018-01-16] MEDS: oxyCODONE IR 5 MG TAB PO PRN (19:17)
--- NOTE | 2018-01-16 20:04 | GHP ---
[f rep st] HISTORY AND PHYSICAL POST ADMISSION PHYSICIAN EVALUATION AND REHABILITATION TREATMENT PLAN DATE OF ADMISSION: 01/16/2018 DATE OF EVALUATION: 01/16/2018. TIME OF EVALUATION: 1835. REFERRING FACILITY: [facility]. REFERRING PHYSICIAN: Yi Barth NP IMPAIRMENT GROUP: 8.9. DATE OF ONSET: 01/11/2018. CONSULTING PHYSICIANS: He was seen by orthopedic surgeon, Dr. Ulises Collins. REHABILITATION DIAGNOSIS: Left tibial plateau fracture with nonweightbearing and with external fixator in place. ETIOLOGIC DIAGNOSIS: Other orthopedic. DATE OF SURGERY: 01/12/2018. HISTORY OF PRESENT ILLNESS: This patient is a 62-year-old man who was admitted to [facility] after suffering a fall while skateboarding. He was helmeted, and there was no loss of consciousness. He suffered a severe left tibial plateau fracture. MRI scan showed complex displaced fracture of the tibial plateau, partial tear of the distal anterior cruciate ligament, complex tear of the medial meniscus, fibular fracture, partial tear of the fibular collateral ligament, and partial tear of the proximal medial collateral ligament. Lumbar x-ray showed an L2 compression fracture. He went to the operating room on 01/12/2018 for the application of an external fixator to the left lower extremity. Hospital course was complicated by pain in the left leg and in the left wrist. He had an x-ray of the left wrist which ruled out a fracture. He had hypokalemia, leukocytosis, and thrombocytopenia. LABORATORY DATA: Hematology: CBC showed an elevated white blood cell count on admission but normal hemoglobin and hematocrit and normal platelet count. Subsequently on 01/13/2018, he had anemia with a hemoglobin of 10.9 and a hematocrit of 32.5. His platelet count was low at 83. By the day of discharge , anemia had improved with a hemoglobin of 11.5 and a hematocrit of 34, and platelets had almost normalized to 140. Coagulation revealed normal PT and PTT. Serum chemistry showed hypokalemia when he was admitted with a potassium of 3.2. Subsequently, it normalized, and on the day of discharge from the hospital, his potassium was 4.5. He had a low calcium at 7.8. Vitamin D was normal at 68.4. PRECAUTIONS: He is a fall risk, and he has orthopedic precautions of nonweightbearing on the left lower extremity. ACTIVE COMORBIDITIES: He has no active tier 1, tier 2, or tier 3 comorbidities. PAST MEDICAL HISTORY: Osteoporosis. PAST SURGICAL HISTORY: He has not had previous surgeries. PREHOSPITAL MEDICATIONS: He was not taking any medications. 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 He has a history of alcohol use but quit drinking 2 years ago. He is a lifelong nonsmoker. He recently moved to [place]. He lives in a studio apartment with multiple steps up and down to enter. He has an adult son and daughter. Daughter lives in the [facility], and son lives in [place]. ALLERGIES: There are no known drug allergies. FAMILY HISTORY: There is osteoporosis in his mother and in siblings. REVIEW OF SYSTEMS: CONSTITUTIONAL: He reports overall adequate pain control, but he needs to stay ahead of the pain. He sleeps very well, and as he is not awakened for pain medication, he tends to wake up in the morning with pain. He denies fever or chills. He has lost some weight since he came to [place] as he reports that he has been more active and not eating as well. He also reports a recent visit to his son in [place] who apparently is a good cook, and he says he gained 3 pounds while he was there. GI: He has had constipation but thinks he will be moving his bowels soon as he has been passing flatus. He denies nausea or vomiting. : He denies dysuria or urinary frequency. CARDIORESPIRATORY: He denies cough or dyspnea. He denies chest pain or palpitations. EXTREMITIES: He notes swelling to the left thigh. His pain is at the site of the external fixator on the left thigh primarily. Otherwise, a 10-point review of systems is negative. PHYSICAL EXAMINATION: VITAL SIGNS: Vitals are not yet available in the chart. Today at the hospital, blood pressure was 108/67, heart rate was 86, respiratory rate was 16, oxygen saturation was 95% on half a liter by nasal cannula. Temperature was 36.7 degrees centigrade. His weight is 61.2 kg for a body mass index of 18.3. GENERAL: This is a thin man who appears his chronologic age, sitting up in bed, dressed in a hospital robe, cooperative, and in no acute distress. HEENT: Extraocular movements are intact. Pupils are equal, round, and reactive to light. Mucous members are moist. Dentition is in good condition. He has an uncrowded airway, Mallampati class 1. NECK: Supple. HEART: Regular rate and rhythm with no murmurs, rubs, or gallops. LUNGS: Clear to auscultation bilaterally. ABDOMEN: Soft, nontender, nondistended with normoactive bowel sounds and no hepatosplenomegaly. EXTREMITIES: Left leg is wrapped in an Mark wrap and has external fixators present in the thigh and in the [place]. The left thigh is larger in girth than the right thigh. There is no erythema and no discharge at the fixator sites. His left toes are warm and mobile. Radial pulses are 2+ bilaterally. Dorsalis pedis pulse is 2+ on the right. NEUROLOGIC: He is alert and oriented x3. Cranial nerves 2 through 12 are grossly intact. There is no focal weakness, and sensation is intact to light touch. CURRENT LEVEL OF FUNCTION PER THE PREADMISSION SCREEN: For diet, feeding, and swallowing, he was on a regular diet. He required assistance for bathing. He required setup for lower body dressing. He required assistance for toileting. He was continent of bowel and bladder. He required minimal to moderate assistance for bed mobility. He required moderate assistance for transferring to maintain nonweightbearing status in the left lower extremity. He used a front-wheeled walker. Seated balance, required contact guard assistance standing. Standing balance required moderate assist. His endurance was fair. He ambulated minimally, recorded as 1 foot with moderate assistance and voice cues for proper use of the front-wheeled walker. On today's exam, there are no differences noted from the pre-admission screen. IMPRESSION: This is a 62-year-old man who had a fall while skateboarding and has suffered a complex tibial plateau fracture including meniscus and ligament injuries. Due to swelling, he has not had definitive surgery yet but has had an external fixator placed by Orthopedic Surgery. Hospital course was complicated by pain and anemia. He has constipation. He had hypokalemia when he was first admitted to the hospital, but this has resolved with potassium supplementation. He has a history of osteoporosis, but he is otherwise healthy. His goal is to complete a rehabilitation stay and then either go home alone with supportive services or go to a hotel where he might live on a single level depending on his progress. For a safe discharge, it is expected that he will achieve independence with grooming, dressing, and bed mobility and modified independence for transfers and ambulation. He will likely use a walker for ambulation and crutches for stair climbing. He will have therapy with Physical Therapy and Occupational Therapy for 90 minutes per day for each discipline on 5 to 7 days of the week. His expected duration of stay is 5 to 7 days. It is anticipated that upon discharge he will continue to benefit from home health services including occupational therapy and physical therapy. PLAN: 1. Debility and nonweightbearing on the left lower extremity, status post tibial plateau fracture and ligament and meniscus tears on the left lower extremity. He is nonweightbearing. He will have physical and occupational therapy to optimize his mobility and activities of daily living toward independent or modified independent for discharge home or to a hotel room for a short period of time. He will have followup with orthopedic surgeon, Dr. Collins. Reviewing notes from the Orthopedic Surgery Service, plan is for surgery approximately 10 days subsequent to the external fixator placement, which was done on 01/12/2018, so surgery would be on approximately 01/22/2018 or 01/23/2018. 2. L2 compression fracture. There was a consultation with Neurosurgery, and recommendation was for a Janie brace or pain control only. 3. Osteoporosis. He reports that his condition has been stable on DEXA scanning over the past several years. He takes a vitamin D supplement, and his vitamin D level was normal. He can follow up with primary care or possibly Endocrinology after his discharge. Might consider bisphosphonate or other treatment to reduce his fracture risk in the future. 4. Pain control. Continue oxycodone as ordered out of the hospital at 5 to 15 mg p.o. q.3 hours p.r.n. His oxycodone use will be monitored and medications adjusted to optimize pain control. It is unclear whether methocarbamol is playing a role. 5. Constipation. Continue laxatives. I have added a bisacodyl suppository which can be used if he does not have a bowel movement tomorrow. 6. Prophylaxis. He is at high risk for DVT in the left lower extremity. Continue enoxaparin 40 mg subcutaneous daily. /[id number]/MODL MTDD
[2018-01-16] MEDS: METHOCARBAMOL 500 MG TAB PO SCH (21:10)
[2018-01-16] MEDS: SENNOSIDES/DOCUSATE SODIUM TAB PO SCH (21:10)
[2018-01-16] MEDS: ACETAMINOPHEN 500 MG TAB PO SCH (21:12)
[2018-01-17] MEDS: oxyCODONE IR 5 MG TAB PO PRN ×4 (02:52→22:21)
[2018-01-17] MEDS: ACETAMINOPHEN 500 MG TAB PO SCH ×3 (05:48→21:51)
[2018-01-17] MEDS: SENNOSIDES/DOCUSATE SODIUM TAB PO SCH ×2 (08:26→22:01)
[2018-01-17] MEDS: METHOCARBAMOL 500 MG TAB PO SCH ×3 (08:26→21:59)
[2018-01-17] MEDS: POLYETHYLENE GLYCOL 3350 17 GM PKT PO SCH (08:27)
[2018-01-17] MEDS: ENOXAPARIN 40 MG/0.4 ML SYR SC SCH (08:27)
[2018-01-17] MEDS ORDERED: POTASSIUM CL 20 MEQ PKT PO SCH (09:00)
--- NOTE | 2018-01-17 12:14 | SOAPPROG ---
SOAP Progress Note Assessment/Plan: Assessment: * Debility and nonweightbearing on the left lower extremity, status post tibial plateau fracture and ligament and meniscus tears on the left lower extremity. * Nonweightbearing LLE. * He will have physical and occupational therapy to optimize his mobility and activities of daily living toward independent or modified independent for discharge home or to a hotel room for a short period of time. * Continue daily dressing changes at external fixator pin sites. Monitor for signs or symptoms of infection * He will have followup with orthopedic surgeon, Dr. Collins. Reviewing notes from the Orthopedic Surgery Service, plan is for surgery approximately 10 days subsequent to the external fixator placement, which was done on 01/12/2018, so surgery would be on approximately 01/22/2018 or 01/23/2018. * L2 compression fracture. There was a consultation with Neurosurgery, and recommendation was for a [place] brace or pain control only. * Osteoporosis. He reports that his condition has been stable on DEXA scanning over the past several years. He takes a vitamin D supplement, and his vitamin D level was normal. He can follow up with primary care or possibly Endocrinology after his discharge. Might consider bisphosphonate or other treatment to reduce his fracture risk in the future. * Pain control. Add morphine sustained release 15 mg p. O. Twice daily starting 01/17/2018. Will also schedule acetaminophen 1000 mg three times daily Continue oxycodone as ordered out of the hospital at 5 to 15 mg p.o. q.3 hours p.r.n. It is unclear whether methocarbamol is playing a role. * Constipation. Continue laxatives. I have added a bisacodyl suppository which can be used if he does not have a bowel movement tomorrow. * Prophylaxis. He is at high risk for DVT in the left lower extremity. Continue enoxaparin 40 mg subcutaneous daily. 01/17/18 12:32 Subjective: Slept very well last night. Was up with therapies this morning and pain limited his ability to participate. Notes continued swelling of the left thigh. Has not moved his bowels yet. Otherwise without complaint. Objective: Vital Signs Temp Pulse Resp BP Pulse Ox 36.7 C 77 16 101/66 93 01/17/18 07:55 01/17/18 07:55 01/17/18 07:55 01/17/18 07:55 01/17/18 07:55 01/16/18 01/17/18 01/18/18 05:59 05:59 05:59 Intake Total 900 Output Total 1375 700 Balance -475 -700 Physical Exam - Physical Exam General Appearance: WD/WN, alert, no apparent distress Respiratory: other (Tachypneic during change of dressings around fixator pins, due to pain.), No respiratory distress, No accessory muscle use Cardiac/Chest: No edema Skin: normal color, warm/dry, other (No erythema or purulence around fixator pins. Proximal alcantar on the tibia has sanguinous oozing.) Extremities: swelling (Left thigh) Neuro/Psych: no motor/sensory deficits, alert, normal mood/affect, oriented x 3 ICD10 Worksheet Patient Problems: Problems Problem Status Onset Tibial plateau fracture, left Acute
[2018-01-17] MEDS: morphINE SR 15 MG TAB PO SCH ×2 (14:06→22:05)
[2018-01-17] MEDS: PSYLLIUM METAMUCIL 1 PKT PO SCH (15:44)
[2018-01-17] MEDS: BISACODYL 10 MG SUPP PR PRN (15:44)
[2018-01-18] MEDS: chlorproMAZINE HCL 25 MG TAB PO PRN ×3 (00:41→18:45)
[2018-01-18] MEDS: ACETAMINOPHEN 500 MG TAB PO SCH ×3 (05:19→21:30)
[2018-01-18] MEDS: POLYETHYLENE GLYCOL 3350 17 GM PKT PO SCH (08:06)
[2018-01-18] MEDS: METHOCARBAMOL 500 MG TAB PO SCH ×3 (08:06→21:28)
[2018-01-18] MEDS: PSYLLIUM METAMUCIL 1 PKT PO SCH (08:06)
[2018-01-18] MEDS: SENNOSIDES/DOCUSATE SODIUM TAB PO SCH ×2 (08:07→21:31)
[2018-01-18] MEDS: ENOXAPARIN 40 MG/0.4 ML SYR SC SCH (08:07)
[2018-01-18] MEDS: morphINE SR 15 MG TAB PO SCH ×2 (08:07→21:31)
[2018-01-18] MEDS ORDERED: SENNOSIDES/DOCUSATE SODIUM TAB PO SCH (09:09)
[2018-01-18] MEDS: oxyCODONE IR 5 MG TAB PO PRN ×3 (13:26→22:41)
--- NOTE | 2018-01-18 15:05 | SOAPPROG ---
SOAP Progress Note Assessment/Plan: Assessment: * Debility and nonweightbearing on the left lower extremity, status post tibial plateau fracture and ligament and meniscus tears on the left lower extremity. * Initial functional independence measure 71 on 01/18/2018. He requires moderate assistance for bed mobility and transfers with assistance for managing his left leg. He requires moderate to maximal assistance to Don his pants. He has a goal of accomplishing limited walking. It is unlikely that he will be able to manage the stairs up and down to get into his apartment. Continue PT and OT. * Continue daily dressing changes at external fixator pin sites. Monitor for signs or symptoms of infection * L2 compression fracture. There was a consultation with Neurosurgery, and recommendation was for a Janie brace or pain control only. * Hiccoughs. Unclear etiology. * Chest x-ray, abdominal x-ray, CBC and BMP are unrevealing of any significant and abnormalities. * Responding to chlorpromazine; may continue three times daily p.r.n.. * Start proton pump inhibitor in case reflux and esophageal irritation is involved. * If no resolution consider further evaluation. Increased swelling LLE. * Get US to r/o DVT. * Osteoporosis. He reports that his condition has been stable on DEXA scanning over the past several years. He takes a vitamin D supplement, and his vitamin D level was normal. He can follow up with primary care or possibly Endocrinology after his discharge. Might consider bisphosphonate or other treatment to reduce his fracture risk in the future. * Pain control. Add morphine sustained release 15 mg p. O. Twice daily starting 01/17/2018. Will also schedule acetaminophen 1000 mg three times daily Continue oxycodone as ordered out of the hospital at 5 to 15 mg p.o. q.3 hours p.r.n. It is unclear whether methocarbamol is playing a role. * Constipation. Continue laxatives. I have added a bisacodyl suppository which can be used if he does not have a bowel movement tomorrow. * Prophylaxis. He is at high risk for DVT in the left lower extremity. Continue enoxaparin 40 mg subcutaneous daily. Attended staffing, 15 min. Discussed with dietitian, medical case worker, nursing, PT , OT. He likely will be unable to return to his apartment while he continues to have the external fixator. Short term plan history managed inpatient rehabilitation. Discharge options can be explored depending on functional status after his surgery which is planned for early next week. Tentative discharge date of 02/01/2018. He will have followup with orthopedic surgeon, Dr. Collins. Reviewing notes from the Orthopedic Surgery Service, plan is for surgery approximately 10 days subsequent to the external fixator placement, which was done on 01/12/2018, so surgery would be on approximately 01/22/2018 or 01/23/2018. 01/18/18 18:16 Subjective: Complains of hiccups. Impaired sleep last night. Responded well to low-dose Thorazine. Pain is better controlled. Had a large bowel movement. Notes increased swelling LLE. Says he had numbness in foot when he first sat on edge of bed, but numbness resolved. Denies calf pain. Objective: Vital Signs Temp Pulse Resp BP Pulse Ox 36.8 C 95 18 94/66 L 96 01/18/18 05:56 01/18/18 05:56 01/18/18 05:56 01/18/18 05:56 01/18/18 05:56 Laboratory Results 01/18/18 06:00 01/17/18 01/18/18 01/19/18 05:59 05:59 05:59 Intake Total 900 1400 598 Output Total 1375 2900 800 Balance -475 -1500 -202 - Time Spent With Patient Time Spent With Patient: Greater than 35 min floor time today, including more than 50% of time in coordination of care during staffing meeting, and counseling patient. Physical Exam - Physical Exam General Appearance: WD/WN, alert, no apparent distress, thin Respiratory: normal breath sounds, No crackles, No rhonchi, No wheezing Cardiac/Chest: regular rate, rhythm, other (Periodic checkups throughout exam), No diastolic murmur, No systolic murmur Abdomen: normal bowel sounds, non-tender, soft, No distended Extremities: other (External fixator in place left lower extremity with serosanguineous oozing on dressing round distal tibial pin and proximal femoral pin) Neuro/Psych: no motor/sensory deficits, alert, normal mood/affect, oriented x 3 ICD10 Worksheet Patient Problems: Problems Problem Status Onset Tibial plateau fracture, left Acute
[2018-01-18] MEDS: PANTOPRAZOLE SODIUM 40 MG TAB PO SCH (16:11)
[2018-01-18 17:12] LABS: PLATELET COUNT 108 10^3/uL (150-400)
[2018-01-19] MEDS: ACETAMINOPHEN 500 MG TAB PO SCH ×3 (06:29→21:05)
[2018-01-19] MEDS: SENNOSIDES/DOCUSATE SODIUM TAB PO SCH ×2 (08:41→21:07)
[2018-01-19] MEDS: METHOCARBAMOL 500 MG TAB PO SCH ×3 (08:41→21:04)
[2018-01-19] MEDS: morphINE SR 15 MG TAB PO SCH ×2 (08:41→21:05)
[2018-01-19] MEDS: PANTOPRAZOLE SODIUM 40 MG TAB PO SCH (08:41)
[2018-01-19] MEDS: POLYETHYLENE GLYCOL 3350 17 GM PKT PO SCH (08:41)
[2018-01-19] MEDS: PSYLLIUM METAMUCIL 1 PKT PO SCH (08:42)
[2018-01-19] MEDS: ENOXAPARIN 40 MG/0.4 ML SYR SC SCH (08:42)
[2018-01-19] MEDS: oxyCODONE IR 5 MG TAB PO PRN ×3 (08:52→21:06)
--- NOTE | 2018-01-19 12:21 | SOAPPROG ---
SOAP Progress Note Assessment/Plan: Assessment: * Debility and nonweightbearing on the left lower extremity, status post tibial plateau fracture and ligament and meniscus tears on the left lower extremity. * Initial functional independence measure 71 on 01/18/2018. He requires moderate assistance for bed mobility and transfers with assistance for managing his left leg. He requires moderate to maximal assistance to Don his pants. He has a goal of accomplishing limited walking. It is unlikely that he will be able to manage the stairs up and down to get into his apartment. Continue PT and OT. * Continue daily dressing changes at external fixator pin sites. Monitor for signs or symptoms of infection * L2 compression fracture. There was a consultation with Neurosurgery, and recommendation was for a Keyes brace or pain control only. * Hiccoughs. Unclear etiology. * Chest x-ray, abdominal x-ray, CBC and BMP are unrevealing of any significant and abnormalities. * Responding to chlorpromazine; may continue three times daily p.r.n.. * Start proton pump inhibitor in case reflux and esophageal irritation is involved. * If no resolution consider further evaluation. Increased swelling LLE. * Ultrasound 01/18 negative for DVT * Osteoporosis. He reports that his condition has been stable on DEXA scanning over the past several years. He takes a vitamin D supplement, and his vitamin D level was normal. He can follow up with primary care or possibly Endocrinology after his discharge. Might consider bisphosphonate or other treatment to reduce his fracture risk in the future. * Pain control. Add morphine sustained release 15 mg p. O. Twice daily starting 01/17/2018. Will also schedule acetaminophen 1000 mg three times daily Continue oxycodone as ordered out of the hospital at 5 to 15 mg p.o. q.3 hours p.r.n. It is unclear whether methocarbamol is playing a role. * Constipation. Continue laxatives. I have added a bisacodyl suppository which can be used if he does not have a bowel movement tomorrow. * Prophylaxis. He is at high risk for DVT in the left lower extremity. Continue enoxaparin 40 mg subcutaneous daily. Plan: 01/19/18 12:20 Subjective: Doing okay. Is trying to take as needed oxycodone regularly before rehab to prevent pain Objective: Vital Signs Temp Pulse Resp BP Pulse Ox 36.6 C 83 16 109/72 95 01/19/18 08:00 01/19/18 08:00 01/19/18 08:00 01/19/18 08:00 01/19/18 08:00 Laboratory Results 01/18/18 16:25 01/18/18 06:00 01/18/18 01/19/18 01/20/18 05:59 05:59 05:59 Intake Total 1400 1448 100 Output Total 2900 2600 150 Balance -1500 -1152 -50 Physical Exam - Physical Exam General Appearance: WD/WN, alert, no apparent distress Respiratory: normal breath sounds, No respiratory distress Cardiac/Chest: regular rate, rhythm Extremities: swelling (Left leg) Neuro/Psych: alert, normal mood/affect, oriented x 3 ICD10 Worksheet Patient Problems: Problems Problem Status Onset Tibial plateau fracture, left Acute
[2018-01-20] MEDS: ACETAMINOPHEN 500 MG TAB PO SCH ×3 (06:00→21:06)
[2018-01-20] MEDS: ENOXAPARIN 40 MG/0.4 ML SYR SC SCH (08:23)
[2018-01-20] MEDS: PANTOPRAZOLE SODIUM 40 MG TAB PO SCH (08:23)
[2018-01-20] MEDS: METHOCARBAMOL 500 MG TAB PO SCH ×3 (08:23→21:07)
[2018-01-20] MEDS: PSYLLIUM METAMUCIL 1 PKT PO SCH (08:23)
[2018-01-20] MEDS: SENNOSIDES/DOCUSATE SODIUM TAB PO SCH ×2 (08:23→21:07)
[2018-01-20] MEDS: morphINE SR 15 MG TAB PO SCH ×2 (08:23→21:07)
[2018-01-20] MEDS: POLYETHYLENE GLYCOL 3350 17 GM PKT PO SCH (08:24)
[2018-01-20] MEDS: oxyCODONE IR 5 MG TAB PO PRN ×3 (09:56→19:56)
--- NOTE | 2018-01-20 20:45 | SOAPPROG ---
SOAP Progress Note Assessment/Plan: Assessment: * Debility and nonweightbearing on the left lower extremity, status post tibial plateau fracture and ligament and meniscus tears on the left lower extremity. * Initial functional independence measure 71 on 01/18/2018. He requires moderate assistance for bed mobility and transfers with assistance for managing his left leg. He requires moderate to maximal assistance to Don his pants. He has a goal of accomplishing limited walking. It is unlikely that he will be able to manage the stairs up and down to get into his apartment. Continue PT and OT. * Continue daily dressing changes at external fixator pin sites. Monitor for signs or symptoms of infection - will need to be looked at tomorrow. Drainage decreased per nursing although still inflamed * L2 compression fracture. There was a consultation with Neurosurgery, and recommendation was for a Janie brace or pain control only. * Hiccoughs. Unclear etiology. * Chest x-ray, abdominal x-ray, CBC and BMP are unrevealing of any significant and abnormalities. * Responding to chlorpromazine; may continue three times daily p.r.n.. * Start proton pump inhibitor in case reflux and esophageal irritation is involved. * If no resolution consider further evaluation. Increased swelling LLE. * Ultrasound 01/18 negative for DVT * Osteoporosis. He reports that his condition has been stable on DEXA scanning over the past several years. He takes a vitamin D supplement, and his vitamin D level was normal. He can follow up with primary care or possibly Endocrinology after his discharge. Might consider bisphosphonate or other treatment to reduce his fracture risk in the future. * Pain control. Add morphine sustained release 15 mg p. O. Twice daily starting 01/17/2018. Will also schedule acetaminophen 1000 mg three times daily Continue oxycodone as ordered out of the hospital at 5 to 15 mg p.o. q.3 hours p.r.n. It is unclear whether methocarbamol is playing a role. * Will increase MS Contin to 30 mg in the morning and 15 at night * Constipation. Continue laxatives. I have added a bisacodyl suppository which can be used if he does not have a bowel movement tomorrow. * Prophylaxis. He is at high risk for DVT in the left lower extremity. Continue enoxaparin 40 mg subcutaneous daily. Plan: 01/19/18 12:20 01/20/18 20:44 Subjective: Is requiring frequent doses of p.r.n. Oxycodone during the day. He does have trouble getting his pain level below 5 Objective: Vital Signs Temp Pulse Resp BP Pulse Ox 36.6 C 92 18 94/60 L 96 01/20/18 18:20 01/20/18 18:20 01/20/18 18:20 01/20/18 18:20 01/20/18 18:20 Laboratory Results 01/18/18 16:25 01/18/18 06:00 01/19/18 01/20/18 01/21/18 05:59 05:59 05:59 Intake Total 1448 980 240 Output Total 2600 410 700 Balance -1152 570 -460 Physical Exam - Physical Exam General Appearance: WD/WN, alert, no apparent distress Respiratory: No respiratory distress Neuro/Psych: alert, normal mood/affect, oriented x 3 ICD10 Worksheet Patient Problems: Problems Problem Status Onset Tibial plateau fracture, left Acute
[2018-01-21] MEDS: ACETAMINOPHEN 500 MG TAB PO SCH ×3 (05:23→20:28)
[2018-01-21] MEDS: METHOCARBAMOL 500 MG TAB PO SCH ×3 (09:14→20:27)
[2018-01-21] MEDS: ENOXAPARIN 40 MG/0.4 ML SYR SC SCH (09:14)
[2018-01-21] MEDS: POLYETHYLENE GLYCOL 3350 17 GM PKT PO SCH (09:14)
[2018-01-21] MEDS: PSYLLIUM METAMUCIL 1 PKT PO SCH (09:14)
[2018-01-21] MEDS: SENNOSIDES/DOCUSATE SODIUM TAB PO SCH ×2 (09:15→20:28)
[2018-01-21] MEDS: PANTOPRAZOLE SODIUM 40 MG TAB PO SCH (09:15)
[2018-01-21] MEDS: morphINE SR 30 MG TAB PO SCH (09:15)
[2018-01-21] MEDS: oxyCODONE IR 5 MG TAB PO PRN ×4 (09:25→20:27)
--- NOTE | 2018-01-21 09:53 | SOAPPROG ---
SOAP Progress Note Assessment/Plan: Assessment: * Debility and nonweightbearing on the left lower extremity, status post tibial plateau fracture and ligament and meniscus tears on the left lower extremity. * Initial functional independence measure 71 on 01/18/2018. He requires moderate assistance for bed mobility and transfers with assistance for managing his left leg. He requires moderate to maximal assistance to Don his pants. He has a goal of accomplishing limited walking. It is unlikely that he will be able to manage the stairs up and down to get into his apartment. Continue PT and OT. * Continue daily dressing changes at external fixator pin sites. Monitor for signs or symptoms of infection * L2 compression fracture. There was a consultation with Neurosurgery, and recommendation was for a Janie brace or pain control only. * Hiccoughs. Unclear etiology. * Chest x-ray, abdominal x-ray, CBC and BMP are unrevealing of any significant and abnormalities. * Responding to chlorpromazine; may continue three times daily p.r.n.. * Start proton pump inhibitor in case reflux and esophageal irritation is involved. * If no resolution consider further evaluation. * Increased swelling LLE. * Ultrasound 01/18/2018 ruled out DVT. * Continue elevating leg whenever possible. * Cellulitis around proximal tibial pin. Initiate cephalexin 500 mg p.o. four times daily on 01/21/2018.. * Osteoporosis. He reports that his condition has been stable on DEXA scanning over the past several years. He takes a vitamin D supplement, and his vitamin D level was normal. He can follow up with primary care or possibly Endocrinology after his discharge. Might consider bisphosphonate or other treatment to reduce his fracture risk in the future. * Pain control. Initiated morphine sustained release 15 mg PO twice daily starting 01/17/2018. AM morphine increased to 30 mg starting today, 01/21/2018. Continue scheduled acetaminophen 1000 mg three times daily Continue oxycodone as ordered out of the hospital at 5 to 15 mg p.o. q.3 hours p.r.n. It is unclear whether methocarbamol is playing a role. * Constipation. Continue laxatives. I have added a bisacodyl suppository which can be used if he does not have a bowel movement tomorrow. * Prophylaxis. He is at high risk for DVT in the left lower extremity. Continue enoxaparin 40 mg subcutaneous daily. He likely will be unable to return to his apartment while he continues to have the external fixator. Short term plan history managed inpatient rehabilitation. Discharge options can be explored depending on functional status after his surgery which is planned for early next week. Tentative discharge date of 02/01/2018. Orthopedic plan was discussed with Dr. Collins on 01/21/2018. He will have surgery SundayJanuary 25 at noon. He will be NPO after midnight except for medications. Continue cephalexin until the morning of surgery. Case management to coordinate with Dr. Collins his office regarding transportation etc. 01/21/18 12:13 Subjective: Continues to have pain and swelling left lower extremity. Weekend cross cover increased morning extended release morphine from 15-30 mg. Sleeping well. No cough or dyspnea. Bowels moved yesterday. No fevers or chills. Objective: Vital Signs Temp Pulse Resp BP Pulse Ox 36.6 C 92 18 94/60 L 96 01/20/18 18:20 01/20/18 18:20 01/20/18 18:20 01/20/18 18:20 01/20/18 18:20 Laboratory Results 01/18/18 16:25 01/18/18 06:00 01/20/18 01/21/18 01/22/18 05:59 05:59 05:59 Intake Total 980 740 Output Total 410 2350 Balance 570 -1610 Physical Exam - Physical Exam General Appearance: WD/WN, alert, no apparent distress Respiratory: No respiratory distress, No accessory muscle use Skin: other (Increased erythema surrounding proximal tibial pin but no remy purulence. Possible satellite lesion around erythematous area. Erythema approximately 1 cm radius around pin.) Extremities: swelling (2 to 3+ left lower extremity distally from thigh.) ICD10 Worksheet Patient Problems: Problems Problem Status Onset Tibial plateau fracture, left Acute
[2018-01-21] MEDS: CEPHALEXIN 500 MG CAP PO SCH ×3 (11:40→23:40)
[2018-01-21] MEDS: morphINE SR 15 MG TAB PO SCH (20:28)
[2018-01-22] MEDS: ACETAMINOPHEN 500 MG TAB PO SCH ×3 (05:55→22:00)
[2018-01-22] MEDS: CEPHALEXIN 500 MG CAP PO SCH ×4 (05:55→23:53)
[2018-01-22 08:02] LABS: PLATELET COUNT 245 10^3/uL (150-400)
[2018-01-22] MEDS: ENOXAPARIN 40 MG/0.4 ML SYR SC SCH (09:51)
[2018-01-22] MEDS: POLYETHYLENE GLYCOL 3350 17 GM PKT PO SCH (09:52)
[2018-01-22] MEDS: morphINE SR 30 MG TAB PO SCH (09:53)
[2018-01-22] MEDS: SENNOSIDES/DOCUSATE SODIUM TAB PO SCH ×2 (09:53→21:25)
[2018-01-22] MEDS: METHOCARBAMOL 500 MG TAB PO SCH ×3 (09:53→21:13)
[2018-01-22] MEDS: PANTOPRAZOLE SODIUM 40 MG TAB PO SCH (09:53)
[2018-01-22] MEDS: PSYLLIUM METAMUCIL 1 PKT PO SCH (09:56)
[2018-01-22] MEDS: oxyCODONE IR 5 MG TAB PO PRN ×4 (10:34→21:12)
--- NOTE | 2018-01-22 12:23 | SOAPPROG ---
SOAP Progress Note Assessment/Plan: Assessment: * Debility and nonweightbearing on the left lower extremity, status post tibial plateau fracture and ligament and meniscus tears on the left lower extremity. * Initial functional independence measure 71 on 01/18/2018. He requires moderate assistance for bed mobility and transfers with assistance for managing his left leg. He requires moderate to maximal assistance to don his pants. He has a goal of accomplishing limited walking. It is unlikely that he will be able to manage the stairs up and down to get into his apartment. Continue PT and OT. * Continue daily dressing changes at external fixator pin sites. Monitor for signs or symptoms of infection * L2 compression fracture. There was a consultation with Neurosurgery, and recommendation was for a Janie brace or pain control only. * Hiccoughs. Unclear etiology. * Chest x-ray, abdominal x-ray, CBC and BMP are unrevealing of any significant and abnormalities. * Responding to chlorpromazine; may continue three times daily p.r.n.. * Start proton pump inhibitor in case reflux and esophageal irritation is involved. * Resolved; not using chlorpromazine since 01/18/2018. * Increased swelling LLE. * Ultrasound 01/18/2018 ruled out DVT. * Continue elevating leg whenever possible. * Cellulitis around proximal tibial pin. Initiate cephalexin 500 mg p.o. four times daily on 01/21/2018. * Stable on exam 01/22/2018. No leukocytosis on CBC. * Osteoporosis. He reports that his condition has been stable on DEXA scanning over the past several years. He takes a vitamin D supplement, and his vitamin D level was normal. He can follow up with primary care or possibly Endocrinology after his discharge. Might consider bisphosphonate or other treatment to reduce his fracture risk in the future. * Pain control. * Initiated morphine sustained release 15 mg PO twice daily starting 01/17/2018. AM morphine increased to 30 mg starting 01/21/2018. * Continue scheduled acetaminophen 1000 mg three times daily * Continue oxycodone as ordered out of the hospital at 5 to 15 mg p.o. q.3 hours p.r.n: using 40 - 45 mg/day for the past 2 days as of 01/22/2018. * It is unclear whether methocarbamol is playing a role. * Constipation. * Increased senna/docusate from 1 tablet twice daily to is 2 tablets twice daily starting 01/14/2018. * Continue bisacodyl suppository PRN. * Continue polyethylene glycol q.day and psyllium. * Prophylaxis. He is at high risk for DVT in the left lower extremity. Continue enoxaparin 40 mg subcutaneous daily. He likely will be unable to return to his apartment while he continues to have the external fixator. Short term plan history managed inpatient rehabilitation. Discharge options can be explored depending on functional status after his surgery which is planned for early next week. Tentative discharge date of 02/01/2018. Orthopedic plan was discussed with Dr. Collins on 01/21/2018. He will have surgery SundayJanuary 25 at noon. He will be NPO after midnight except for medications. Continue cephalexin until the morning of surgery. Case management to coordinate with Dr. Collins his office regarding transportation etc. 01/22/18 15:28 Subjective: Pain is adequately controlled. Several days since he has had a bowel movement. No fevers or chills, no cough or dyspnea. Objective: Vital Signs Temp Pulse Resp BP Pulse Ox 36.7 C 92 18 103/61 97 01/22/18 08:00 01/22/18 08:00 01/22/18 08:00 01/22/18 08:00 01/22/18 08:00 Laboratory Results 01/22/18 06:00 01/18/18 06:00 01/21/18 01/22/18 01/23/18 05:59 05:59 05:59 Intake Total 740 3550 358 Output Total 2350 3300 Balance -1610 250 358 Physical Exam - Physical Exam General Appearance: WD/WN, alert, no apparent distress Respiratory: normal breath sounds, No crackles, No rhonchi, No wheezing Cardiac/Chest: regular rate, rhythm, No diastolic murmur, No systolic murmur Skin: other (Erythema surrounding the proximal tibial pin approximately 2 cm in diameter with no satellite lesions and no purulence.) Extremities: swelling (Left lower extremity) Neuro/Psych: no motor/sensory deficits, alert, normal mood/affect, oriented x 3 ICD10 Worksheet Patient Problems: Problems Problem Status Onset Tibial plateau fracture, left Acute
[2018-01-22] MEDS: morphINE SR 15 MG TAB PO SCH (21:13)
[2018-01-23] MEDS: BISACODYL 10 MG SUPP PR PRN (05:58)
[2018-01-23] MEDS: ACETAMINOPHEN 500 MG TAB PO SCH ×3 (05:58→21:18)
[2018-01-23] MEDS: CEPHALEXIN 500 MG CAP PO SCH ×4 (05:58→23:57)
[2018-01-23] MEDS: METHOCARBAMOL 500 MG TAB PO SCH ×3 (08:49→21:22)
[2018-01-23] MEDS: PANTOPRAZOLE SODIUM 40 MG TAB PO SCH (08:50)
[2018-01-23] MEDS: SENNOSIDES/DOCUSATE SODIUM TAB PO SCH ×2 (08:50→21:19)
[2018-01-23] MEDS: oxyCODONE IR 5 MG TAB PO PRN ×4 (08:51→21:18)
[2018-01-23] MEDS: PSYLLIUM METAMUCIL 1 PKT PO SCH (08:51)
[2018-01-23] MEDS: morphINE SR 30 MG TAB PO SCH (08:51)
[2018-01-23] MEDS: ENOXAPARIN 40 MG/0.4 ML SYR SC SCH (08:52)
[2018-01-23] MEDS: POLYETHYLENE GLYCOL 3350 17 GM PKT PO SCH (08:52)
--- NOTE | 2018-01-23 12:49 | SOAPPROG ---
SOAP Progress Note Assessment/Plan: Assessment: * Debility and nonweightbearing on the left lower extremity, status post tibial plateau fracture and ligament and meniscus tears on the left lower extremity. * Initial functional independence measure 75 on 01/18/2018, improved to 98 as of . Needs minimal assist with bed mobility to move the left leg. Ambulated 30 ft using front wheeled walker with standby assist. Contact guard assist to standby assist with transfers. Lumbar spine orthosis provides comfort on a p.r.n. Basis. Requires only setup for ADLs. * Continue PT and OT. * Continue daily dressing changes at external fixator pin sites. Monitor for signs or symptoms of infection * L2 compression fracture. There was a consultation with Neurosurgery, and recommendation was for a Janie brace or pain control only. * Hiccoughs. Unclear etiology. * Chest x-ray, abdominal x-ray, CBC and BMP are unrevealing of any significant and abnormalities. * Responding to chlorpromazine; may continue three times daily p.r.n.. * Start proton pump inhibitor in case reflux and esophageal irritation is involved. * Resolved; not using chlorpromazine since 01/18/2018. * Increased swelling LLE. * Ultrasound 01/18/2018 ruled out DVT. * Continue elevating leg whenever possible. * Cellulitis around proximal tibial pin. Initiate cephalexin 500 mg p.o. four times daily on 01/21/2018. * Improving on exam 01/23/2018. No leukocytosis on CBC. * Osteoporosis. He reports that his condition has been stable on DEXA scanning over the past several years. He takes a vitamin D supplement, and his vitamin D level was normal. He can follow up with primary care or possibly Endocrinology after his discharge. Might consider bisphosphonate or other treatment to reduce his fracture risk in the future. * Pain control. * Initiated morphine sustained release 15 mg PO twice daily starting 01/17/2018. AM morphine increased to 30 mg starting 01/21/2018. * Continue scheduled acetaminophen 1000 mg three times daily * Continue oxycodone as ordered out of the hospital at 5 to 15 mg p.o. q.3 hours p.r.n: using 40 - 45 mg/day for the past 2 days as of 01/22/2018. * It is unclear whether methocarbamol is playing a role. * Constipation. * Increased senna/docusate from 1 tablet twice daily to is 2 tablets twice daily starting 01/14/2018. * Continue bisacodyl suppository PRN. * Continue polyethylene glycol q.day and psyllium. * Prophylaxis. He is at high risk for DVT in the left lower extremity. Continue enoxaparin 40 mg subcutaneous daily. Attended staffing, 15 min. Discussed with case management, pharmacist, dietitian, nursing, PT, OT. He likely will be unable to return to his apartment while he continues to have the external fixator. Short term plan is inpatient rehabilitation. Discharge options can be explored depending on functional status after his surgery. Discharge to [facility] for surgery on 01/25/2018.. Orthopedic plan was discussed with Dr. Collins on 01/21/2018. He will have surgery SundayJanuary 25 at noon. He will be NPO after midnight except for medications. Continue cephalexin until the morning of surgery. Case management to coordinate with Dr. Collins his office regarding transportation etc. 01/23/18 12:45 Subjective: No complaints. Slept well. Pain is adequately controlled as long as he stays ahead of it. Had a bowel movement today. Objective: Vital Signs Temp Pulse Resp BP Pulse Ox 36.5 C 83 16 112/65 95 01/23/18 08:00 01/23/18 08:00 01/23/18 08:00 01/23/18 08:00 01/23/18 08:00 Laboratory Results 01/22/18 06:00 01/18/18 06:00 01/22/18 01/23/18 01/24/18 05:59 05:59 05:59 Intake Total 3550 2498 840 Output Total 3300 1400 950 Balance 250 1098 -110 - Time Spent With Patient Time Spent With Patient: Greater than 35 min floor time today, including more than 50% of time in coordination of care during staffing meeting, and counseling patient. Physical Exam - Physical Exam General Appearance: WD/WN, alert, no apparent distress Respiratory: No respiratory distress, No accessory muscle use Skin: normal color, warm/dry, other (Erythema reduced around proximal tibial pin now approximately 1 cm in diameter.) Extremities: swelling (Left lower extremity from thigh to lower leg) Neuro/Psych: no motor/sensory deficits, alert, normal mood/affect, oriented x 3 ICD10 Worksheet Patient Problems: Problems Problem Status Onset Tibial plateau fracture, left Acute
[2018-01-23] MEDS: morphINE SR 15 MG TAB PO SCH (21:18)
[2018-01-24] MEDS: ACETAMINOPHEN 500 MG TAB PO SCH (06:20)
[2018-01-24] MEDS: CEPHALEXIN 500 MG CAP PO SCH ×2 (06:20→13:09)
[2018-01-24 06:24] VITALS: BP 104/56
[2018-01-24] MEDS: morphINE SR 30 MG TAB PO SCH (08:59)
[2018-01-24] MEDS: POLYETHYLENE GLYCOL 3350 17 GM PKT PO SCH (08:59)
[2018-01-24] MEDS: METHOCARBAMOL 500 MG TAB PO SCH (08:59)
[2018-01-24] MEDS: SENNOSIDES/DOCUSATE SODIUM TAB PO SCH (08:59)
[2018-01-24] MEDS: PSYLLIUM METAMUCIL 1 PKT PO SCH (08:59)
[2018-01-24] MEDS: PANTOPRAZOLE SODIUM 40 MG TAB PO SCH (08:59)
[2018-01-24] MEDS: ENOXAPARIN 40 MG/0.4 ML SYR SC SCH (08:59)
[2018-01-24] MEDS: oxyCODONE IR 5 MG TAB PO PRN ×2 (09:03→13:08)
--- NOTE | 2018-01-24 12:24 | PDGENHP ---
History & Physical Chief Complaint: Left tibia plateau fracture History of Present Illness: 62 year old male with a left tibia plateau fracture. Patient underwent an ex-fix placement by Dr. Collins on 01/12/18 to allow swelling to go down before going forward with an Open Reduction Internal Fixation left tibia plateau fracture. Pertinent Past, Social, Family History: unchanged since his last surgery 01/12/18 Relevant Physical Exam: Physical exam of the LLE: ex-fix is in place. Patient is able to move toes. Normal sensation to light touch in the LLE. Cardiorespiratory Assessment: Assessment/Plan: Left tibia plateau fracture. Patient will undergo left lower extremity ex-fix removal and ORIF tibia plateau fracture by Dr. Collins. He should be NPO. NWB LLE.
--- NOTE | 2018-01-24 14:26 | PDOREHIP ---
Admission [facility] - Admission - 3 Day Assessment Period Admission Date/Day 1: 01/16/18 Day 2: 01/17/18 Day 3: 01/18/18 Discharge [facility] - Discharge - 3 Day Assessment Period 2 Days Prior to Anticipated Discharge Date: 01/22/18 1 Day Prior to Anticipated Discharge Date: 01/23/18 Anticipated Discharge Date: 01/24/18 - Discharge Skin Conditions Unhealed Pressure Ulcer (1 or more/Stage 1 or >)-Discharge: 0. No
--- NOTE | 2018-01-24 17:14 | GDS ---
[f rep st] DISCHARGE SUMMARY CONSULTATIONS: There were none. PROCEDURES: There was an abdominal x-ray and a chest x-ray on 01/18/2018, which ruled out any etiology for hiccups including no chest masses and no constipation. COMPLICATIONS: There were none. HISTORY AND HOSPITAL COURSE: The patient was admitted from [facility]. There, he had had an external fixator placed for a complex left tibial plateau and fibula fracture with ligament and meniscus damage as well. He had had these injuries in a fall while skateboarding. He has a history of osteoporosis. Therapy was limited due to the presence of the external fixator and nonweightbearing status on the left lower extremity. His initial functional independence measure was 71 on 01/18/2018, which is consistent with correction level of care.. He required moderate assistance for bed mobility and transfers, with assistance for managing his left leg. He needed moderate to maximal assistance to don his pants. Ultimately, he had improvement with his functional independence measure improving to 98 as of 01/23/2018, which is consistent with assisted living facility level of care. He needed only minimal assist with bed mobility to move his left leg, he was able to ambulate 30 feet using a front-wheeled walker with standby assist,. He needed contact guard assist to standby assist for transfers. He was using a lumbar spine orthosis for comfort for his L2 compression fracture only on a p.r.n. basis. He had daily dressing changes of the dressings around the external fixator pin sites. There were 2 in the femur and 2 in the tibia. He developed erythema around the proximal tibia pin, which was treated with cephalexin and he had improvement in the erythema. He had an episode of hiccups. Chest x-ray, abdominal x-ray, CBC and BMP were unrevealing regarding any etiology. He was treated with chlorpromazine with good effect. He was begun on a proton pump inhibitor in case esophageal irritation was involved, and hiccups resolved with no use of chlorpromazine since 01/18/2018. He was noted to have increased swelling of the left lower extremity. An ultrasound was obtained on 01/18/2018, which ruled out a DVT. Pain control: Initially, he was treated with acetaminophen 1000 mg three times daily as well as oxycodone on a p.r.n. basis. Sustained release morphine was added at 15 mg twice daily on 01/17/2018, and increased to 30 mg in the morning and 15 mg in the evening on 01/21/2018. Overall, pain control was adequate for sleep and for participating in therapies. He was using 45-60 mg of oxycodone each day. He continued scheduled methocarbamol, which he found to be helpful, at 750 mg p.o. t.i.d. He had constipation and needed titration of senna/docusate from 1 tablet twice daily to 2 tablets twice daily. He had polyethylene glycol as well as psyllium and he used a bisacodyl suppository on a p.r.n. basis. Last bowel movement was recorded on 01/24/2018. He was continued on enoxaparin 40 mg subcutaneous daily for DVT prophylaxis. He was discharged to [facility] for definitive surgery to repair his fractures and ligament tears on 01/24/2018. MEDICATIONS ON DISCHARGE: He is n.p.o. except for medications and sips today, though he had breakfast this morning. Medications are: 1. Acetaminophen 1000 mg p.o. daily 8 hours, scheduled. 2. Bisacodyl 10 mg daily p.r.n. 3. Cephalexin 500 mg p.o. q.6 hours. 4. Enoxaparin 40 mg subcutaneous daily. 5. Methocarbamol 750 mg p.o. t.i.d. 6. Morphine extended release 30 mg q.a.m. and 15 mg at bedtime. 7. Oxycodone 5-15 mg p.o. q.3 hours p.r.n. 8. Pantoprazole 40 mg p.o. daily. 9. Polyethylene glycol 17 g p.o. daily. 10. Psyllium 1 package p.o. daily. 11. Senna/docusate 2 tablets p.o. twice daily. DISCHARGE PLAN: He is being discharged to the Orthopedic service. He will have surgery, and subsequent disposition will be established per Case Management at the hospital. It is unclear whether he will be able to return home to his apartment where he both has to climb and descend stairs to access the apartment, versus a short stay at a hotel or other residence where he will not have to climb stairs until he is recovered from his surgery. /[id number]/MODL MTDRoxie
== END 2018-01-24 15:10 | disposition still patient (30) | DRG 860 ==
LOC: BREH 17:00
PROVIDERS: ADMIT Internal Medicine; ATTEND Internal Medicine
PROC: F07Z8FZ Transfer Training Treatment using Assistive, Adaptive, Supportive or Protective Equipment (ICD-10-PCS; principal; 2018-01-16)
PROC: F08Z0FZ Bathing/Showering Techniques Treatment using Assistive, Adaptive, Supportive or Protective Equipment (ICD-10-PCS; principal; 2018-01-16)
PROC: F08Z1FZ Dressing Techniques Treatment using Assistive, Adaptive, Supportive or Protective Equipment (ICD-10-PCS; principal; 2018-01-16)
PROC: F07Z5FZ Bed Mobility Treatment using Assistive, Adaptive, Supportive or Protective Equipment (ICD-10-PCS; principal; 2018-01-16)
DX: S82.142D Displaced bicondylar fracture of left tibia, subsequent encounter for closed fracture with routine healing (principal); K59.00 Constipation, unspecified; S83.512D Sprain of anterior cruciate ligament of left knee, subsequent encounter; S82.402D Unspecified fracture of shaft of left fibula, subsequent encounter for closed fracture with routine healing; S83.412D Sprain of medial collateral ligament of left knee, subsequent encounter; S83.232D Complex tear of medial meniscus, current injury, left knee, subsequent encounter; S32.020D Wedge compression fracture of second lumbar vertebra, subsequent encounter for fracture with routine healing; V00.131D Fall from skateboard, subsequent encounter; M81.0 Age-related osteoporosis without current pathological fracture
CPT/HCPCS: 97110-GO; 97110-GP; 97116-GP; 97161-GP; 97166-GO; 97530-GO; 97530-GP; 97535-GO; 97542-GP; J1650

== ENCOUNTER 2018-01-24 12:30 | Inpatient (IN) | payer MEDICAID ==
[2018-01-24] MEDS ORDERED: LIDOCAINE 1% 2 ML INJ ONE (16:44)
[2018-01-24] MEDS ORDERED: LIDOCAINE 1% 2 ML INJ ID PRN (16:44)
[2018-01-24] MEDS ORDERED: LR 1,000 ML IV ONE (16:44)
--- NOTE | 2018-01-24 17:18 | PDANEPAE ---
ANE Past Medical History - Pulmonary History Hx Oxygen in Use at Home: No Hx Sleep Apnea: No - Endocrine History Hx Diabetes: No - Chronic Pain History Chronic Pain: No ANE Review of Systems Review of Systems: ANE Patient History - Allergies Allergies/Adverse Reactions: No Known Allergies Allergy (Unverified 01/11/18 16:39) - Home Medications Home Medications: Keflex 01/24/18 [Last Taken 01/24/18 09:30] morphINE IR 01/24/18 [Last Taken 01/24/18 09:30] - NPO status NPO Since - Liquids (Date): 01/24/18 NPO Since - Liquids (Time): 10:00 NPO Since - Solids (Date): 01/24/18 NPO Since - Solids (Time): 10:00 - Smoking Hx Smoking Status: Never smoked ANE Labs/Vital Signs - Vital Signs Blood Pressure: 98/58 Heart Rate: 100 Respiratory Rate: 15 O2 Sat (%): 98 Height: 182.88 cm Weight: 61.235 kg
[2018-01-24] MEDS ORDERED: BUPIVACAINE/EPI 0.5% 30 ML SDV ONE (18:07)
[2018-01-24] MEDS ORDERED: ONDANSETRON 4 MG/2 ML VIAL IVP PRN (18:52)
[2018-01-24] MEDS ORDERED: BISACODYL 10 MG SUPP PR PRN (19:00)
[2018-01-24] MEDS ORDERED: LACTULOSE 20 GM/30 ML UDCUP PO PRN (19:00)
[2018-01-24] MEDS ORDERED: diphenhydrAMINE 25 MG CAP PO PRN (19:00)
[2018-01-24] MEDS ORDERED: DIPHENOXYLATE/ATROPINE LOMOTIL 1 TAB PO PRN (19:00)
[2018-01-24] MEDS ORDERED: MAGNESIUM HYDROXIDE 30 ML UDCUP PO PRN (19:00)
--- NOTE | 2018-01-24 19:05 | SOAPPROG ---
SOAP Progress Note Assessment/Plan: Assessment: left tibia plateau fracture with ex- fix Left hip pain: unremarkable xray Plan: Patient was scheduled for surgery tonight 01/24 & was canceled due swelling Plan for rescheduling for ex-fix removal and ORIF left tibia plateau fracture on 02/05-02/[address] Collins Patient should remain NWB LLE New posterior splint placed tonight Ice to left knee/calf and hip Pain medicine as needed DVT prophylaxis: Lovenox 40mg daily Elevation of LLE Left hip pain: unremarkable xray Patient should be transported back to Rehab in the morning tomorrow. Ortho stable. Subjective: 62 year old male who had an ex-fix placed for a left tibia plateau fracture on . He presents to the hospital today to undergo an ex-fix removal and open reduction internal fixation left tibia plateau fracture. However the patient still had to much swelling in his left lower extremity so Dr. Collins canceled his surgery. Objective: Vital Signs Temp Pulse Resp BP Pulse Ox 36.7 C 96 18 98/80 L 96 01/24/18 18:47 01/24/18 18:47 01/24/18 18:47 01/24/18 18:47 01/24/18 18:47 Physical exam of the left lower extremity: there is significant swelling around the left knee and calf. Tenderness to palpation over the proximal calf and knee. Pin sites healing well, no active drainage. Patient is able to move all toes. Normal sensation to light touch in the LLE. Distal pulse present in the LLE. ICD10 Worksheet Patient Problems: Problems Problem Status Onset Tibial plateau fracture, left Acute
[2018-01-24] MEDS: OXYCODONE/APAP 5/325 TAB PO PRN ×2 (19:22→23:37)
[2018-01-24] MEDS: SENNOSIDES/DOCUSATE SODIUM TAB PO SCH (20:41)
[2018-01-24] MEDS: FAMOTIDINE 20 MG TAB PO SCH (20:41)
[2018-01-24] MEDS: CYCLOBENZAPRINE 10 MG TAB PO PRN (23:39)
--- NOTE | 2018-01-25 07:37 | SOAPPROG ---
PAN Progress Note Assessment/Plan: Assessment: left tibia plateau fracture with ex- fix Left hip pain: unremarkable xray Plan: Patient was scheduled for surgery tonight 01/24 & was canceled due swelling Plan for rescheduling for ex-fix removal and ORIF left tibia plateau fracture on 02/05-02/[address] Collins Patient should remain NWB LLE New posterior splint placed tonight Ice to left knee/calf and hip Pain medicine as needed DVT prophylaxis: Lovenox 40mg daily Elevation of LLE Left hip pain: unremarkable xray Patient should be transported back to Rehab today Ortho stable and okay for discharge/transfer Subjective: Patient is in bed with his left leg elevated. He states it feels about the same as yesterday. Objective: Vital Signs Temp Pulse Resp BP Pulse Ox 36.6 C 68 16 112/66 97 01/25/18 04:22 01/25/18 04:22 01/25/18 04:22 01/25/18 04:22 01/25/18 04:22 01/24/18 01/25/18 01/26/18 05:59 05:59 05:59 Output Total 575 Balance -575 Physical exam LLE: leg is elevated. There is still significant swelling over the knee and calf. Pin sites are healing well, no drainage. Normal sensation to light touch in the LLE. Distal pulse present in the LLE. ICD10 Worksheet Patient Problems: Problems Problem Status Onset Tibial plateau fracture, left Acute
[2018-01-25] MEDS: ENOXAPARIN 40 MG/0.4 ML SYR SC SCH (08:59)
[2018-01-25] MEDS: OXYCODONE/APAP 5/325 TAB PO PRN ×4 (08:59→21:56)
[2018-01-25] MEDS: FAMOTIDINE 20 MG TAB PO SCH ×2 (09:00→21:57)
[2018-01-25] MEDS: SENNOSIDES/DOCUSATE SODIUM TAB PO SCH ×2 (09:00→21:57)
--- NOTE | 2018-01-25 10:48 | PDIAF ---
- Diagnosis Diagnosis: left tibia plateau fracture: ex-fix Code Status: Full Code - Medication Management Discharge Medications: Medications to Continue on Transfer Acetaminophen [Tylenol ES 500 mg (*)] 1,000 mg PO Q8 tab 01/16/18 [Last Taken 01/24/18 09:30] Enoxaparin [Lovenox 40 MG (*)] 40 mg SC DAILY syr 01/16/18 [Last Taken 09:30] Methocarbamol [Robaxin 500 mg (*)] 750 mg PO TID tab 01/16/18 [Last Taken 01/24 12:30] Polyethylene Glycol 3350 [Miralax 17 gm (*)] 17 gm PO DAILY PRN pkt 01/16/18 [ Last Taken 01/24/18 12:30] Potassium Chloride Po [Klor Packets 20 meq (*)] 20 meq PO DAILY pkt 01/16/18 [ Last Taken 01/24/18 12:30] Sennosides/Docusate Sodium [Senokot-S] 1 - 2 tab PO BID tab 01/16/18 [Last Taken 01/24/18 12:30] oxyCODONE IR [Oxycodone Ir (*)] 5 - 15 mg PO Q3HRS PRN tab 01/16/18 [Last Taken 01/24/18 09:30] Cephalexin [Keflex (*)] 500 mg PO QID 01/24/18 [Last Taken 01/24/18 09:30] Discharge Medications: Refer to the Discharge Home Medication list for PRN reason. - Orders Diet Recommendation: no restrictions on diet Diet Texture: Regular Texture Diet Additional Instructions: Orthopedics: Patient was scheduled for surgery tonight 01/24 & was canceled due swelling Plan for rescheduling for ex-fix removal and ORIF left tibia plateau fracture on 02/05-02/[address] Collins Patient should remain non weight bearing left lower extremity Ice to left knee/calf and hip Pain medicine as needed Pin site dressing changes every other day DVT prophylaxis: lovenox 40mg daily Elevation of left leg at heart level as much as possible Please call out office with any questions or concerns - Follow Up Care Current Providers and Referrals: NONE *PRIMARY CARE P,. [Primary Care Provider] - Ulises Collins MD [Medical Doctor] - (Follow up with Dr. Collins post operatively 10-14 days post op after his surgery is complete.)
--- NOTE | 2018-01-25 12:30 | ASMTCMCOM ---
CM Note CM Note Notes: Pt admitted last night, from [facility] Inpatient [facility], for scheduled surgery which was canceled due to swelling. Per MD, plan for surgery to be rescheduled 02/05-02/07. Dc order received back to [facility]. Spoke with Aleida, at [facility]; unsure if they will be taking pt back. Aleida states she will need to discuss with Rehab Team. Updated RN & battery container inspector. CM will follow. Date Signed: 01/25/2018 12:29 PM Electronically Signed By:Adrienne Piña RN
[2018-01-25] MEDS: CEPHALEXIN 500 MG CAP PO SCH ×3 (13:27→21:57)
--- NOTE | 2018-01-25 15:38 | SOAPPROG ---
SOAP Progress Note Assessment/Plan: Assessment: left tibia plateau fracture with ex- fix Left hip pain: unremarkable xray Plan: Pt was denied transfer back to Rehab at [facility] due to the patient not meeting their goals. Patient is not safe to discharge home and will need continuos elevation of the left lower extremity. Up to the bathroom only Nursing Pin site care every other day starting today 01/25/18 with half hydrogen peroxide and half normal saline and then reapply dry dressing Patient was scheduled for surgery tonight 01/24 & was canceled due swelling Plan for rescheduling for ex-fix removal and ORIF left tibia plateau fracture on 02/05-02/[address] Collins Patient should remain NWB LLE New posterior splint placed tonight Ice to left knee/calf and hip Pain medicine as needed DVT prophylaxis: Lovenox 40mg daily Elevation of LLE with 5 pillows Ortho stable. Subjective: 62 y.o. male that had an ex fix placed by Dr. Collins on his LLE on 01/12/18 for his left tibia plateau fracture. Objective: Vital Signs Temp Pulse Resp BP Pulse Ox 36.8 C 79 15 96/59 L 96 01/25/18 11:50 01/25/18 11:50 01/25/18 11:50 01/25/18 11:50 01/25/18 11:50 01/24/18 01/25/18 01/26/18 05:59 05:59 05:59 Output Total 575 700 Balance -575 -700 Physical exam of the LLE: ex-fix in place, pin sites without drainage. Normal sensation to light touch in the LLE. Pt able to move all toes. NVI. ICD10 Worksheet Patient Problems: Problems Problem Status Onset Tibial plateau fracture, left Acute
--- NOTE | 2018-01-25 16:00 | PDMN ---
Medical Necessity Medical necessity: Pt meets INPT criteria per MD as of 01/25/18 (est. LOS >2 MN for ongoing eval/tx of L tibia plateau fx with external fixation; further surgery pending, not safe to discharge home per PA progress note).
--- NOTE | 2018-01-25 16:10 | ASMTCMCOM ---
CM Note CM Note Notes: Spoke with Aleida, at [facility]; unable to take pt back. Discussed with Mary ANDERSEN Director. Updated RN & pt. Pt is upset & crying; states he is not sure where he will go. Pt lives alone, in a studio apartment in [place], with little to no support. 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 Pt states he has approximately 10 small steep steps to enter his home & is not sure how he will be able to do that with external fixation in place. Past CM notes state a ULTC was previously done for pt, during his last admission & pt had an [facility] rehab/pre vocational counselor, Nicole [phone], assigned. At that time, referrals were sent to [facility] & [facility], but pt was unable to go because he did not qualify for Longterm Medicaid & therefore had no SNF coverage. Updated PA. Dc order canceled. Pt's surgery tentatively scheduled for 02/06/18. Dc plan TBD CM will follow. CM will continue to follow. Date Signed: 01/25/2018 04:10 PM Electronically Signed By:Adrienne Piña RN
[2018-01-25] MEDS: METHOCARBAMOL 500 MG TAB PO SCH ×2 (17:03→21:37)
[2018-01-26] MEDS: CEPHALEXIN 500 MG CAP PO SCH ×4 (05:40→21:16)
[2018-01-26] MEDS: OXYCODONE/APAP 5/325 TAB PO PRN ×5 (05:41→22:10)
[2018-01-26] MEDS: METHOCARBAMOL 500 MG TAB PO SCH ×3 (08:52→21:15)
[2018-01-26] MEDS: SENNOSIDES/DOCUSATE SODIUM TAB PO SCH ×2 (08:53→19:20)
[2018-01-26] MEDS: FAMOTIDINE 20 MG TAB PO SCH ×2 (08:53→21:15)
[2018-01-26] MEDS: ENOXAPARIN 40 MG/0.4 ML SYR SC SCH (08:53)
[2018-01-26] MEDS: POTASSIUM CL 20 MEQ PKT PO SCH (09:03)
[2018-01-26] MEDS: HYDROGEN PEROXIDE 473 ML BOTTLE TP SCH (12:39)
--- NOTE | 2018-01-26 14:18 | SOAPPROG ---
SOAP Progress Note Assessment/Plan: Assessment: left tibia plateau fracture with ex- fix Left hip pain: unremarkable xray Plan: Nursing Pin site care every other day with half hydrogen peroxide and half normal saline and then reapply dry dressing Plan for rescheduling for ex-fix removal and ORIF left tibia plateau fracture on 02/05-02/[address] Collins Patient should remain NWB LLE Ice to left knee/calf and hip Pain medicine as needed DVT prophylaxis: Lovenox 40mg daily Claudio hose/SCD's right lower extremity. Elevation of LLE with 5 pillows Ortho stable. Subjective: Pt is in bed with his left leg elevated. He states his leg is feeling about the same. Objective: Vital Signs Temp Pulse Resp BP Pulse Ox 36.3 C 90 16 117/70 95 01/26/18 07:46 01/26/18 07:46 01/26/18 07:46 01/26/18 07:46 01/26/18 07:46 01/25/18 01/26/18 01/27/18 05:59 05:59 05:59 Intake Total 1300 500 Output Total 575 2850 Balance -575 -1550 500 Physical exam of the LLE: ex-fix in good pin position, pin sites without drainage. Dressing/mickey wrap in place. Normal sensation to light touch in the LLE. Distal pulse present in the LLE. ICD10 Worksheet Patient Problems: Problems Problem Status Onset Tibial plateau fracture, left Acute
[2018-01-27] MEDS: CEPHALEXIN 500 MG CAP PO SCH ×4 (05:07→21:02)
[2018-01-27] MEDS: OXYCODONE/APAP 5/325 TAB PO PRN ×4 (05:08→18:47)
[2018-01-27] MEDS: METHOCARBAMOL 500 MG TAB PO SCH ×3 (08:17→21:02)
[2018-01-27] MEDS: FAMOTIDINE 20 MG TAB PO SCH ×2 (08:17→21:02)
[2018-01-27] MEDS: ENOXAPARIN 40 MG/0.4 ML SYR SC SCH ×2 (08:17→08:18)
[2018-01-27] MEDS: SENNOSIDES/DOCUSATE SODIUM TAB PO SCH ×2 (08:17→21:04)
[2018-01-27] MEDS: POTASSIUM CL 20 MEQ PKT PO SCH (08:18)
--- NOTE | 2018-01-27 13:13 | SOAPPROG ---
SOAP Progress Note Assessment/Plan: Assessment: left tibia plateau fracture with ex- fix Left hip pain: unremarkable xray Plan: I looked at tib/fib xrays from his previous admission that did not show any fractures of the ankle. Ice on the top of his left ankle Nursing Pin site care every other day with half hydrogen peroxide and half normal saline and then reapply dry dressing Plan for rescheduling for ex-fix removal and ORIF left tibia plateau fracture on 02/05-02/[address] Collins Patient should remain NWB LLE Ice to left knee/calf and hip Pain medicine as needed DVT prophylaxis: Lovenox 40mg daily Claudio hose/SCD's right lower extremity. Elevation of LLE with 5 pillows Ortho stable. Subjective: Pt is in bed with his left leg elevated on pillows. He states his leg is feeling a little better today. He does complain of some discomfort in his left ankle. Objective: Vital Signs Temp Pulse Resp BP Pulse Ox 36.6 C 75 16 109/64 94 01/27/18 07:25 01/27/18 07:25 01/27/18 07:25 01/27/18 07:25 01/27/18 07:25 01/26/18 01/27/18 01/28/18 05:59 05:59 05:59 Intake Total 1300 2500 1350 Output Total 2850 2303 Balance -4091 059 9479 Physical exam of the LLE: ex-fix in place, pin sites healing no drainage. Normal sensation to light touch in the LLE. ICD10 Worksheet Patient Problems: Problems Problem Status Onset Tibial plateau fracture, left Acute
[2018-01-27] MEDS: CYCLOBENZAPRINE 10 MG TAB PO PRN (21:02)
[2018-01-28] MEDS: CEPHALEXIN 500 MG CAP PO SCH ×4 (05:30→21:52)
[2018-01-28] MEDS: OXYCODONE/APAP 5/325 TAB PO PRN ×5 (05:33→21:58)
[2018-01-28] MEDS: FAMOTIDINE 20 MG TAB PO SCH ×2 (08:39→21:53)
[2018-01-28] MEDS: SENNOSIDES/DOCUSATE SODIUM TAB PO SCH ×2 (08:39→21:53)
[2018-01-28] MEDS: METHOCARBAMOL 500 MG TAB PO SCH ×3 (08:39→21:53)
[2018-01-28] MEDS: ENOXAPARIN 40 MG/0.4 ML SYR SC SCH (08:41)
[2018-01-28] MEDS: POTASSIUM CL 20 MEQ PKT PO SCH ×2 (08:41→08:48)
[2018-01-28] MEDS: HYDROGEN PEROXIDE 473 ML BOTTLE TP SCH (12:15)
--- NOTE | 2018-01-28 12:29 | SOAPPROG ---
SOAP Progress Note Assessment/Plan: Assessment: left tibia plateau fracture with ex- fix Left hip pain: unremarkable xray Plan: I looked at tib/fib xrays from his previous admission that did not show any fractures of the ankle. Ice on the top of his left ankle prn. Adjust mickey wrap if pt develops increased discomfort around the ankle. Nursing Pin site care every other day with half hydrogen peroxide and half normal saline and then reapply dry dressing Plan for rescheduling for ex-fix removal and ORIF left tibia plateau fracture on 02/05-02/[address] Collins Patient should remain NWB LLE Ice to left knee/calf and hip Pain medicine as needed DVT prophylaxis: Lovenox 40mg daily Claudio hose/SCD's right lower extremity. Elevation of LLE with 5 pillows Ortho stable. Subjective: Pt is in bed with his LLE elevated. He states that his left ankle is feeling better today after the mickey wrap was adjusted. Overall he is doing well. Objective: Vital Signs Temp Pulse Resp BP Pulse Ox 36.4 C 77 16 102/70 95 01/28/18 08:00 01/28/18 08:00 01/28/18 08:00 01/28/18 08:00 01/28/18 08:00 01/27/18 01/28/18 01/29/18 05:59 05:59 05:59 Intake Total 2500 4150 Output Total 2303 1200 Balance 197 2950 Physical exam of the LLE: ex-fix in place, no active drainage from the pin sites. Normal sensation to light touch in the LLE. Distal pulse present in the LLE. ICD10 Worksheet Patient Problems: Problems Problem Status Onset Tibial plateau fracture, left Acute
--- NOTE | 2018-01-28 17:27 | ASMTCMCOM ---
CM Note CM Note Notes: Pt surgery scheduled 02/05-02/07, pt swelling has to decrease. Pt likely has swelling due to the therapy he was participating in at the [facility] inpatient rehab? Pt has leg elevated here now and is limiting activity. CM to follow. Date Signed: 01/28/2018 05:27 PM Electronically Signed By:CHEVY Lynch
[2018-01-28 19:30] LABS: PLATELET COUNT 523 10^3/uL (150-400)
[2018-01-29] MEDS: OXYCODONE/APAP 5/325 TAB PO PRN ×5 (05:43→21:54)
[2018-01-29] MEDS: CEPHALEXIN 500 MG CAP PO SCH ×2 (05:43→12:18)
[2018-01-29] MEDS: POTASSIUM CL 20 MEQ PKT PO SCH (10:03)
[2018-01-29] MEDS: SENNOSIDES/DOCUSATE SODIUM TAB PO SCH ×2 (10:04→20:08)
[2018-01-29] MEDS: METHOCARBAMOL 500 MG TAB PO SCH ×3 (10:05→21:55)
[2018-01-29] MEDS: FAMOTIDINE 20 MG TAB PO SCH ×2 (10:05→20:08)
[2018-01-29] MEDS: ENOXAPARIN 40 MG/0.4 ML SYR SC SCH (10:08)
--- NOTE | 2018-01-29 10:10 | SOAPPROG ---
SOAP Progress Note Assessment/Plan: Assessment: left tibia plateau fracture with ex- fix Plan: I looked at tib/fib xrays from his previous admission that did not show any fractures of the ankle. Ice on the top of his left ankle prn. Adjust mickey wrap if pt develops increased discomfort around the ankle. Nursing Pin site care every other day with half hydrogen peroxide and half normal saline and then reapply dry dressing Plan for rescheduling for ex-fix removal and ORIF left tibia plateau fracture on 02/05-02/[address] Collins Patient should remain NWB LLE Ice to left knee/calf and hip Pain medicine as needed DVT prophylaxis: Lovenox 40mg daily Claudio hose/SCD's right lower extremity. Elevation of LLE with 5 pillows Ortho stable Subjective: Pt has his left leg elevated in bed on pillows. He states that his left ankle is feeling better today. Overall he is doing well. Objective: Vital Signs Temp Pulse Resp BP Pulse Ox 36.6 C 91 16 110/66 96 01/29/18 08:00 01/29/18 08:00 01/29/18 08:00 01/29/18 08:00 01/29/18 08:00 Laboratory Results 01/28/18 18:18 01/28/18 18:18 01/28/18 01/29/18 01/30/18 05:59 05:59 05:59 Intake Total 4150 1300 Output Total 1200 1850 Balance 2950 -550 Physical exam of the LLE: ex fix pin sites without erythema or active drainage. Pt able to move all 5 toes. Normal sensation to light touch in the LLE. ICD10 Worksheet Patient Problems: Problems Problem Status Onset Tibial plateau fracture, left Acute
--- NOTE | 2018-01-29 15:26 | ASMTCMCOM ---
CM Note CM Note Notes: Pt surgery scheduled 02/06/18. Pt plans to d/c home when medically stable after surgery. Pt has support of a bible study friend when he d/c home to assist with his care and needs. Pt connected with spiritual care services today. Date Signed: 01/29/2018 03:26 PM Electronically Signed By:CHEVY Lynch
[2018-01-30] MEDS: OXYCODONE/APAP 5/325 TAB PO PRN ×2 (06:43→21:17)
--- NOTE | 2018-01-30 08:30 | SOAPPROG ---
SOAP Progress Note Assessment/Plan: Assessment: s/p Left tib/fib ex-fix with scheduled removal of ex-fix and ORIF left tibial plateau fx on 02/05-02/07. Overall doing well. Ice on the top of his left ankle prn. Adjust mickey wrap if pt develops increased discomfort around the ankle. States pain is well controlled. Nursing Pin site care every other day with half hydrogen peroxide and half normal saline and then reapply dry dressing. No signs of infection around wound sites at this time. Plan for rescheduling for ex-fix removal and ORIF left tibia plateau fracture on 02/05-02/[address] Collins Patient should remain NWB LLE. PT/OT eval for sitting up. Strict NWB. Ice to left knee/calf and hip Pain medicine prn. DVT prophylaxis: Lovenox 40mg daily. Claudio hose/SCD's right lower extremity. IS. Elevation of LLE with 5 pillows Patient discussed with Dr. Collins. 01/30/18 08:28 Subjective: Alert and oriented, able to respond appropriately to questions. Denies numbness/ tingling, change in heat/color of extremity or of wound site, cough, congestion , chest pain, SOB, dyspnea, claudication, abnormal bleeding/oozing/discharge. Has been compliant in not ambulating. Passed flatus and has had a BM. Objective: Vital Signs Temp Pulse Resp BP Pulse Ox 36.6 C 81 16 112/63 95 01/30/18 07:52 01/30/18 07:52 01/30/18 07:52 01/30/18 07:52 01/30/18 07:52 Laboratory Results 01/28/18 18:18 01/28/18 18:18 01/29/18 01/30/18 01/31/18 05:59 05:59 05:59 Intake Total 1300 2500 Output Total 1850 750 Balance -550 1750 A/o. Able to respond appropriately to questions. NAD. Non-labored breathing. No diaphoresis. M/S: Left LE with no abnormal bleeding/oozing/discharge around pin sites. Bandaged and ex-fix in place. No change in heat/color of extremity or of around wound sites. Passive ROM in b/l great toe in all planes produced no reproducible pain in lower compartments. DNVI b/l with gross sensation intact and no focal deficits. Brisk cap refill b/l in lower extremities. AROM: limited by pain and swelling. Negative b/l Homans. Calves soft/supple and NTTP b/l. - Pending Discharge Pending Discharge Within 48 Hours: No ICD10 Worksheet Patient Problems: Problems Problem Status Onset Tibial plateau fracture, left Acute
[2018-01-30] MEDS: ENOXAPARIN 40 MG/0.4 ML SYR SC SCH (09:02)
[2018-01-30] MEDS: SENNOSIDES/DOCUSATE SODIUM TAB PO SCH ×2 (09:03→21:16)
[2018-01-30] MEDS: FAMOTIDINE 20 MG TAB PO SCH ×2 (09:03→21:16)
[2018-01-30] MEDS: METHOCARBAMOL 750 MG TAB PO SCH ×3 (09:03→22:40)
[2018-01-30] MEDS: HYDROGEN PEROXIDE 473 ML BOTTLE TP SCH (09:07)
[2018-01-31] MEDS: METHOCARBAMOL 500 MG TAB PO SCH ×4 (00:41→21:36)
[2018-01-31] MEDS: OXYCODONE/APAP 5/325 TAB PO PRN ×2 (00:47→21:36)
[2018-01-31] MEDS: ENOXAPARIN 40 MG/0.4 ML SYR SC SCH (08:07)
[2018-01-31] MEDS: FAMOTIDINE 20 MG TAB PO SCH ×2 (08:07→21:37)
[2018-01-31] MEDS: SENNOSIDES/DOCUSATE SODIUM TAB PO SCH ×2 (08:09→21:36)
--- NOTE | 2018-01-31 11:23 | SOAPPROG ---
SOAP Progress Note Assessment/Plan: Assessment: s/p Left tib/fib ex-fix with scheduled removal of ex-fix and ORIF left tibial plateau fx on 02/05-02/07. Overall doing well. Ice on the top of his left ankle prn. Adjust mickey wrap if pt develops increased discomfort around the ankle. States pain is well controlled. Nursing Pin site care every other day with half hydrogen peroxide and half normal saline and then reapply dry dressing. No signs of infection around wound sites at this time. He states pin sites were cleaned yesterday after my last visit. Plan for rescheduling for ex-fix removal and ORIF left tibia plateau fracture on 02/05-02/[address] Collins Patient should remain NWB LLE. PT/OT eval for sitting up. Strict NWB. Ice to left knee/calf and hip Pain medicine prn. DVT prophylaxis: Lovenox 40mg daily. Claudio hose/SCD's right lower extremity. IS. Elevation of LLE with 5 pillows Patient discussed with Dr. Collins. 01/31/18 11:22 Subjective: Alert and oriented, able to respond appropriately to questions. Denies numbness/ tingling, change in heat/color of extremity or of wound site, cough, congestion , chest pain, SOB, dyspnea, claudication, abnormal bleeding/oozing/discharge. Has been compliant in not ambulating. Passed flatus and has had a BM. Objective: Vital Signs Temp Pulse Resp BP Pulse Ox 36.4 C 89 14 102/66 94 01/31/18 07:39 01/31/18 07:39 01/31/18 07:39 01/31/18 07:39 01/31/18 07:39 Laboratory Results 01/28/18 18:18 01/28/18 18:18 01/30/18 01/31/18 02/01/18 05:59 05:59 05:59 Intake Total 2500 1750 Output Total 750 2475 400 Balance 1750 -725 -400 A/o. Able to respond appropriately to questions. NAD. Non-labored breathing. No diaphoresis. M/S: Left LE with no abnormal bleeding/oozing/discharge around pin sites. Bandaged and ex-fix in place. No change in heat/color of extremity or of around wound sites. Passive ROM in b/l great toe in all planes produced no reproducible pain in lower compartments. DNVI b/l with gross sensation intact and no focal deficits. Brisk cap refill b/l in lower extremities. AROM: limited by pain and swelling. Negative b/l Homans. Calves soft/supple and NTTP b/l. - Pending Discharge Pending Discharge Within 48 Hours: No ICD10 Worksheet Patient Problems: Problems Problem Status Onset Tibial plateau fracture, left Acute
--- NOTE | 2018-01-31 14:23 | ASMTCMCOM ---
CM Note CM Note Notes: Chart reviewed. Met with patient to review discharge plan of care. He is scheduled for surgery next Sunday and will remain hospitalized until then. He states he is going to call the loan closets to secure equipment for his home and that he has a friend that is retired who will come and cook for him and help with meat wrapper. Likely will need other home health services. Will also provide him with meals on wheels information. CM to follow. Date Signed: 01/31/2018 02:22 PM Electronically Signed By:No Isidro RN
--- NOTE | 2018-02-01 08:42 | SOAPPROG ---
SOAP Progress Note Assessment/Plan: Assessment: s/p Left tib/fib ex-fix with scheduled removal of ex-fix and ORIF left tibial plateau fx on 02/05-02/07. Overall doing well. Ice on the top of his left ankle prn. Adjust mickey wrap if pt develops increased discomfort around the ankle. States pain is well controlled this morning. Nursing Pin site care every other day with half hydrogen peroxide and half normal saline and then reapply dry dressing. No signs of infection around wound sites at this time. He states pin sites were cleaned 2 days ago. Plan for rescheduling for ex-fix removal and ORIF left tibia plateau fracture on 02/05-02/[address] Collins Patient should remain NWB LLE. PT/OT eval for sitting up. Strict NWB. Ice to left knee/calf and hip Pain medicine prn. DVT prophylaxis: Lovenox 40mg daily. Claudio hose/SCD's right lower extremity. IS. Elevation of LLE with 5 pillows Patient discussed with Dr. Collins. 02/01/18 08:39 Subjective: Alert and oriented, able to respond appropriately to questions, sitting up in bed, alone in room. Denies fever, chills, NVD, numbness/tingling, change in heat /color of extremity or of wound site, cough, congestion, chest pain, SOB, dyspnea, claudication, abnormal bleeding/oozing/discharge. Has been compliant in not ambulating. Passed flatus and has had a BM. Objective: Vital Signs Temp Pulse Resp BP Pulse Ox 36.6 C 80 16 108/69 94 02/01/18 08:00 02/01/18 08:00 02/01/18 08:00 02/01/18 08:00 02/01/18 08:00 Laboratory Results 01/28/18 18:18 01/28/18 18:18 01/31/18 02/01/18 02/02/18 05:59 05:59 05:59 Intake Total 1750 1900 Output Total 2475 1875 Balance -725 25 A/o. Able to respond appropriately to questions. NAD. Non-labored breathing. No diaphoresis. M/S: Left LE with no abnormal bleeding/oozing/discharge around pin sites. Bandaged and ex-fix in place with no signs of infection. Compartments around wound sites soft. No change in heat/color of extremity or of around wound sites. Passive ROM in b/l great toe in all planes produced no reproducible pain in lower compartments. DNVI b/l with gross sensation intact and no focal deficits. Brisk cap refill b/l in lower extremities. AROM: good distal ROM in toes, rest of leg motion limited by pain and swelling as well as ex-fix. Negative b/l Homans. Calves soft/supple and NTTP b/l. - Pending Discharge Pending Discharge Within 48 Hours: No ICD10 Worksheet Patient Problems: Problems Problem Status Onset Tibial plateau fracture, left Acute
[2018-02-01] MEDS: FAMOTIDINE 20 MG TAB PO SCH ×2 (10:09→22:51)
[2018-02-01] MEDS: ENOXAPARIN 40 MG/0.4 ML SYR SC SCH (10:10)
[2018-02-01] MEDS: METHOCARBAMOL 500 MG TAB PO SCH ×3 (10:10→22:51)
[2018-02-01] MEDS: SENNOSIDES/DOCUSATE SODIUM TAB PO SCH ×2 (10:11→22:52)
[2018-02-01] MEDS: OXYCODONE/APAP 5/325 TAB PO PRN ×3 (10:13→22:52)
[2018-02-01] MEDS: HYDROGEN PEROXIDE 473 ML BOTTLE TP SCH (14:29)
[2018-02-02] MEDS: ENOXAPARIN 40 MG/0.4 ML SYR SC SCH (08:57)
[2018-02-02] MEDS: SENNOSIDES/DOCUSATE SODIUM TAB PO SCH ×2 (08:57→21:48)
[2018-02-02] MEDS: OXYCODONE/APAP 5/325 TAB PO PRN ×3 (08:58→21:48)
[2018-02-02] MEDS: METHOCARBAMOL 500 MG TAB PO SCH ×3 (09:00→21:49)
[2018-02-02] MEDS: FAMOTIDINE 20 MG TAB PO SCH ×2 (09:01→21:49)
[2018-02-03] MEDS: OXYCODONE/APAP 5/325 TAB PO PRN ×3 (08:25→21:16)
[2018-02-03] MEDS: METHOCARBAMOL 500 MG TAB PO SCH ×3 (08:26→21:17)
[2018-02-03] MEDS: SENNOSIDES/DOCUSATE SODIUM TAB PO SCH ×2 (08:27→21:16)
[2018-02-03] MEDS: FAMOTIDINE 20 MG TAB PO SCH ×2 (08:28→21:16)
[2018-02-03] MEDS: ENOXAPARIN 40 MG/0.4 ML SYR SC SCH (08:29)
--- NOTE | 2018-02-03 11:51 | ASMTCMCOM ---
CM Note CM Note Notes: To remain in hospital until his surgery next Sunday. May need HC and Meals on Wheels set up. Date Signed: 02/03/2018 11:51 AM Electronically Signed By:Kathie Nieves LCSW
[2018-02-03] MEDS: HYDROGEN PEROXIDE 473 ML BOTTLE TP SCH (18:55)
[2018-02-04] MEDS: ENOXAPARIN 40 MG/0.4 ML SYR SC SCH (08:26)
[2018-02-04] MEDS: SENNOSIDES/DOCUSATE SODIUM TAB PO SCH ×2 (08:27→20:59)
[2018-02-04] MEDS: METHOCARBAMOL 500 MG TAB PO SCH ×3 (08:28→21:00)
[2018-02-04] MEDS: FAMOTIDINE 20 MG TAB PO SCH ×2 (08:29→21:00)
[2018-02-04] MEDS: OXYCODONE/APAP 5/325 TAB PO PRN ×3 (08:29→21:02)
--- NOTE | 2018-02-04 13:32 | ASMTCMCOM ---
CM Note CM Note Notes: Chart reviewed. Surgery 02/05 or 02/06. CM provided him with Meals on Wheels information and [employer] for services in the community. CM to follow. Likely to need home care and plan will be clearer after surgery. CM to follow. Date Signed: 02/04/2018 01:31 PM Electronically Signed By:No Isidro RN
--- NOTE | 2018-02-04 14:31 | SOAPPROG ---
SOAP Progress Note Assessment/Plan: Assessment: s/p Left tib/fib ex-fix with scheduled removal of ex-fix and ORIF left tibial plateau fx on 02/05-02/07. Overall doing well. Ice on the top of his left ankle prn. Adjust mickey wrap if pt develops increased discomfort around the ankle. States pain is well controlled at this time and swelling is down. Nursing Pin site care every other day with half hydrogen peroxide and half normal saline and then reapply dry dressing. No signs of infection around wound sites at this time. He states pin sites have been cleaned regularly. Plan for rescheduling for ex-fix removal and ORIF left tibia plateau fracture on 02/05-02/[address] Collins. NPO midnight the night before surgery. Patient should remain NWB LLE. PT/OT eval for sitting up. Strict NWB. Ice to left knee/calf and hip Pain medicine prn. DVT prophylaxis: Lovenox 40mg daily. Claudio hose/SCD's right lower extremity. IS. Elevation of LLE with 5 pillows Patient discussed with Dr. Collins. Subjective: Alone in room, able to respond to questions. Denies abnormal numbness/tingling, change in heat/color of extremity or of wound site, cough, congestion, chest pain, SOB, dyspnea, claudication, abnormal bleeding/oozing/discharge. Has been compliant in not ambulating. Passed flatus and has had a BM. Objective: Vital Signs Temp Pulse Resp BP Pulse Ox 36.4 C 90 16 117/73 95 02/04/18 07:54 02/04/18 07:54 02/04/18 07:54 02/04/18 07:54 02/04/18 07:54 Laboratory Results 01/28/18 18:18 01/28/18 18:18 02/03/18 02/04/18 02/05/18 05:59 05:59 05:59 Intake Total 3400 1800 850 Output Total 3000 1450 1200 Balance 400 350 -350 A/o. Able to respond appropriately to questions. NAD. Non-labored breathing. No diaphoresis. M/S: Left LE with no abnormal bleeding/oozing/discharge around pin sites. Bandaged and ex-fix in place with no signs of infection. Compartments around wound sites soft. No change in heat/color of extremity or of around wound sites. Passive ROM in b/l great toe in all planes produced no reproducible pain in lower compartments. DNVI b/l with gross sensation intact and no focal deficits. Brisk cap refill b/l in lower extremities. AROM: good distal ROM in toes, rest of leg motion limited by ex-fix. Negative b/l Homans. Calves soft/ supple and NTTP b/l. - Pending Discharge Pending Discharge Within 48 Hours: No ICD10 Worksheet Patient Problems: Problems Problem Status Onset Tibial plateau fracture, left Acute
[2018-02-05] MEDS: FAMOTIDINE 20 MG TAB PO SCH ×2 (08:22→22:27)
[2018-02-05] MEDS: ENOXAPARIN 40 MG/0.4 ML SYR SC SCH (08:22)
[2018-02-05] MEDS: METHOCARBAMOL 500 MG TAB PO SCH ×3 (08:23→22:27)
[2018-02-05] MEDS: SENNOSIDES/DOCUSATE SODIUM TAB PO SCH ×2 (08:23→22:29)
[2018-02-05] MEDS: OXYCODONE/APAP 5/325 TAB PO PRN ×3 (08:26→22:28)
--- NOTE | 2018-02-05 09:08 | SOAPPROG ---
SOAP Progress Note Assessment/Plan: Assessment: s/p Left tib/fib ex-fix with scheduled removal of ex-fix and ORIF left tibial plateau fx on 02/05-02/07. Overall doing well. Ice on the top of his left ankle prn. Adjust mickey wrap if pt develops increased discomfort around the ankle. States pain is well controlled at this time and swelling is significantly down. Nursing Pin site care every other day with half hydrogen peroxide and half normal saline and then reapply dry dressing. No signs of infection around wound sites at this time. He states pin sites have been cleaned regularly. Plan for rescheduling for ex-fix removal and ORIF left tibia plateau fracture on 02/05-02/[address] Collins. NPO midnight tonight. Patient should remain NWB LLE. PT/OT eval for sitting up. Strict NWB. Ice to left knee/calf and hip Pain medicine prn. DVT prophylaxis: Lovenox 40mg daily. Claudio hose/SCD's right lower extremity. IS. Elevation of LLE with 5 pillows Patient discussed with Dr. Collins. 02/05/18 09:07 Subjective: Alone in room, able to respond to questions. Denies abnormal numbness/tingling, change in heat/color of extremity or of wound site, cough, congestion, chest pain, SOB, dyspnea, claudication, abnormal bleeding/oozing/discharge, change in distal ROM or strength. Has been compliant in not ambulating. Passed flatus and has had a BM. Objective: Vital Signs Temp Pulse Resp BP Pulse Ox 36.6 C 82 16 113/74 97 02/05/18 08:00 02/05/18 08:00 02/05/18 08:00 02/05/18 08:00 02/05/18 08:00 Laboratory Results 01/28/18 18:18 01/28/18 18:18 02/04/18 02/05/18 02/06/18 05:59 05:59 05:59 Intake Total 1800 3600 Output Total 1450 2900 Balance 350 700 A/o. Able to respond appropriately to questions. NAD. Non-labored breathing. No diaphoresis. M/S: Left LE with no abnormal bleeding/oozing/discharge around pin sites. Bandaged and ex-fix in place with no signs of infection. Compartments around wound sites soft. No change in heat/color of extremity or of around wound sites. Passive ROM in b/l great toe in all planes produced no reproducible pain in lower compartments. DNVI b/l with gross sensation intact and no focal deficits. Brisk cap refill b/l in lower extremities. AROM: good distal ROM in toes, rest of leg motion limited by ex-fix. Negative b/l Homans. Calves soft/ supple and NTTP b/l. - Pending Discharge Pending Discharge Within 48 Hours: No ICD10 Worksheet Patient Problems: Problems Problem Status Onset Tibial plateau fracture, left Acute
[2018-02-05] MEDS: HYDROGEN PEROXIDE 473 ML BOTTLE TP SCH (16:23)
[2018-02-06] MEDS ORDERED: ceFAZolin 2 GM/SWFI 2 GM/20 ML SYR IVP ONE (07:29)
[2018-02-06] MEDS ORDERED: BUPIVACAINE/EPI 0.5% 30 ML SDV ONE (08:56)
[2018-02-06] MEDS: SENNOSIDES/DOCUSATE SODIUM TAB PO SCH ×2 (09:30→22:12)
[2018-02-06] MEDS: FAMOTIDINE 20 MG TAB PO SCH ×2 (09:30→22:12)
[2018-02-06] MEDS: METHOCARBAMOL 500 MG TAB PO SCH ×3 (09:30→22:12)
[2018-02-06] MEDS: OXYCODONE/APAP 5/325 TAB PO PRN ×2 (09:35→17:05)
[2018-02-06] MEDS ORDERED: ceFAZolin 2 GM/SWFI 20 ML SYR IVP ONE (11:42)
--- NOTE | 2018-02-06 12:42 | PDANEPAE ---
ANE History of Present Illness 62 yo male s/p skate boarding accident 01/17 now for definitive ORIF. ANE Past Medical History - Cardiovascular History Hx Hypertension: No Hx Chest Pain: No Hx Coronary Artery / Peripheral Vascular Disease: No - Pulmonary History Hx COPD: No Hx Asthma/Reactive Airway Disease: No Hx Recent Upper Respiratory Infection: No Hx Oxygen in Use at Home: No Hx Sleep Apnea: No - Endocrine History Hx Diabetes: No Hypothyroid: No Obesity: no - Renal History Hx Renal Disorders: No - Liver History Hx Hepatic Disorders: No - GI History Hx Gastrointestinal Disorders: No - Chronic Pain History Chronic Pain: No ANE Review of Systems Review of Systems: - Systems Muscolosketal: Reports: joint swelling (swelling of injured leg, has resolved considerably in past few days) ANE Patient History - Allergies Allergies/Adverse Reactions: No Known Allergies Allergy (Unverified 01/11/18 16:39) - Home Medications Home Medications: Cephalexin [Keflex (*)] 500 mg PO QID 01/24/18 [Last Taken 01/24/18 09:30] - Anes Hx Anes Hx: no prior problems - Smoking Hx Smoking Status: Never smoked Marijuana use: No - Alcohol Use Alcohol Use: None - Family Anes Hx Family Anes Hx: neg - N/A ANE Labs/Vital Signs - Labs Result Diagrams: 01/28/18 18:18 01/28/18 18:18 - Vital Signs Vital Signs: reviewed preoperatively; see RN documention for details ANE Physical Exam - Airway Neck exam: FROM Mallampati Score: Class 1 Mouth exam: poor dentition - Pulmonary Pulmonary: clear to auscultation - Cardiovascular Cardiovascular: regular rate and rhythym - ASA Status ASA Status: I ANE Anesthesia Plan Anesthesia Plan: GA w LMA
[2018-02-06] MEDS ORDERED: DEXAMETHASONE 4 MG/ML VIAL ONE (12:50)
[2018-02-06] MEDS ORDERED: LIDOCAINE 2% 5 ML SDV ONE (12:50)
[2018-02-06] MEDS ORDERED: PROPOFOL/EMULSION 500 MG/50 ML BOTTLE IV ONE (12:50)
[2018-02-06] MEDS ORDERED: ONDANSETRON 4 MG/2 ML VIAL ONE (13:06)
--- NOTE | 2018-02-06 15:42 | POSTANESTH ---
Post Anesthetic Evaluation Cardiovascular Status: Normal, Stable Respiratory Status: Normal, Stable Level of Consciousness/Mental Status: Can Participate in Eval, Mildly Sleepy, Arousable Pain Control: Inadeq, Add Tx Required Nausea/Vomiting Control: Adequate, Prn Tx Ordered Complications Possibly Related to Anesthesia: None Noted
--- NOTE | 2018-02-06 15:44 | POSTOPPROG ---
Post Op Note Date of Operation: 02/06/18 Surgeon: Ulises Collins Space Officer: Lexus Gr PA-C Anesthesia: GET(General Endotracheal) Pre-op Diagnosis: Left lateral tibia plateau fracture and lateral meniscus tear Post-op Diagnosis: ex-fix removal & ORIF left tibia plateau fracture & lateral meniscus repair Indication: unstable fracture LLE Procedure: ex-fix removal and ORIF left tibia plateau fracture ad lateral meniscus rep Findings: see dictated operative note Inf/Abcess present in the surg proc area at time of surgery?: No EBL: 50-100 Complications: none Specimen(s): none
--- NOTE | 2018-02-06 15:47 | SOAPPROG ---
[facility] Progress Note Assessment/Plan: Assessment: status post ex-fix removal and ORIF left tibia plateau fracture and lateral meniscus repair by Dr. Collins 07/09/18 Plan: Patient should remain non weight bearing left lower extremity in hinged knee brace locked at 20 degrees of extension at all times No range of motion of the left knee at this time Ice to left knee/calf Pain medicine as needed Daily dry dressing changes DVT prophylaxis: lovenox 40mg daily Elevation of left leg at heart level as much as possible Subjective: Pt is now status post ex-fix removal and ORIF left tibia plateau fracture and lateral meniscus repair by Dr. Collins 07/09/18 Objective: Vital Signs Temp Pulse Resp BP Pulse Ox 36.5 C 95 18 102/79 97 02/06/18 11:35 02/06/18 11:35 02/06/18 11:35 02/06/18 11:35 02/06/18 11:35 Laboratory Results 01/28/18 18:18 01/28/18 18:18 02/05/18 02/06/18 02/07/18 05:59 05:59 05:59 Intake Total 3600 3200 Output Total 2900 3280 250 Balance 700 -80 -250 Physical exam of the LLE: dry dressing is in place. With gauze and tegader over the ex-fix pin sites. ICD10 Worksheet Patient Problems: Problems Problem Status Onset Tibial plateau fracture, left Acute
--- NOTE | 2018-02-06 16:00 | GOP ---
[f rep st] OPERATIVE REPORT DATE OF OPERATION: 01/24/2018 SURGEON: Ulises Collins MD ANESTHESIA: General. PREOPERATIVE DIAGNOSIS: Left comminuted proximal tibial plateau fracture (lateral). POSTOPERATIVE DIAGNOSIS: Left comminuted proximal tibial plateau fracture (lateral). PROCEDURE PERFORMED: Open reduction, internal fixation left lateral tibial plateau fracture. FINDINGS: DESCRIPTION OF PROCEDURE: The patient taken to the operating room, administered general anesthesia, placed in supine position. Left lower extremity is prepped and draped in normal sterile fashion. An Esmarch was performed followed by elevation of thigh cuff 275 mmHg. The external fixator pins were removed after this engaging the fixator. These were removed with a drill. The pin sites were cleans ed and irrigated. The pin sites were then covered with OpSite. The knee was then re-prepped. The t ibia was exposed through a curvilinear lateral incision. It was carried through dermal subcutaneous tissues. The anterior tibialis was reflected off the tibia. The fracture site was disclosed. We wo rked from inferior up to the level of the meniscus and then dissected underneath the lateral meniscus . The articular compartment was then entered above the lateral meniscus to give us good exposure of the articular surface. Several small fragments of articular surface had to be removed as they were l oose. Thorough lavage was performed. The articular surface was then elevated. The punch down segme nt of metaphyseal bone was elevated using a Rosario elevator, followed by a series of punches. This are a was then supported with bone putty and then cortical cancellous bone chips were placed underneath i t. The lateral cortex that had been splayed open in a clamshell fashion was then brought back across and the pins were then secured underneath the subchondral bone. Four K-wires were used for temporar y fixation. The plate was then selected. A lateral tibial plate was selected. This was contoured t o fit the tibia. The plate was secured proximally with K-wires. The buttressing K-wires were then r epositioned. The lag screw was placed distally on the sliding hole of the plate. A 2.5 drill hole w as passed followed by a 3.5 screw through the oblong hole. The plate was then positioned under fluor oscopy. It was then secured proximally with pins, brought through the proximal portion of the plate. Drills were then used to place the lag screw proximally through the plate. One of the proximal scr ews was a lag screw. The other 3 were locking screws. The kickstand screw was then placed. Then, 2 further screws were placed distally. The plate was then visualized under fluoroscopy. A couple scr ews had to be reinserted because of length issues. Two of the pins superior to the plate were then r emoved. Three pins were left through the holes of the plate as a trampoline buttress underneath the bone fragments. These were cut down to the appropriate length and then impacted to the rim of the pl ate. The wound was then irrigated with normal saline. The lateral meniscal stitches that had been p laced for retraction of the meniscus were then reapproximated through the lateral capsule. The capsu le was then closed with a 0 Vicryl suture, followed by closure of the retinaculum with a 0 Vicryl sut ure, followed by closure of the anterior tibialis fascia with a 0 Vicryl suture, followed by closure of the subcutaneous tissue with 2-0 Vicryl suture, followed by closure of the dermis with casa. I ntraoperative films were taken. The patient tolerated procedure well. He was placed into a sterile compression dressing followed by a hinged knee brace at 20 degrees of flexion. He is discharged to r ecovery room in stable condition. No operative complications. COMPLICATIONS: None. /[id number]/MODL
[2018-02-06] MEDS ORDERED: PROMETHAZINE HCL 25 MG/ML INJ IVP PRN (16:02)
[2018-02-06] MEDS ORDERED: NALOXONE HCL 0.4 MG/ML INJ IVP PRN ×2 (16:02→17:31)
[2018-02-06] MEDS ORDERED: oxyCODONE IR 5 MG TAB PO PRN (16:02)
[2018-02-06] MEDS ORDERED: ALBUTEROL 3 ML DEYVIAL IH PRN (16:02)
[2018-02-06] MEDS ORDERED: LR 500 ML IV PRN (16:02)
[2018-02-06] MEDS ORDERED: ACETAMINOPHEN 500 MG TAB PO PRN (16:02)
[2018-02-06] MEDS ORDERED: DIAZEPAM 5 MG/ML 1 ML SYR ONE (16:03)
[2018-02-06] MEDS: DIAZEPAM 5 MG/ML 1 ML SYR IVP PRN ×2 (16:06→16:21)
[2018-02-06] MEDS: morphINE PCA 30 MG/30 ML PCA IV PRN (18:01)
[2018-02-06] MEDS: oxyCODONE IR 5 MG TAB PO PRN (22:12)
[2018-02-07] MEDS: METHOCARBAMOL 500 MG TAB PO SCH ×3 (08:31→22:01)
[2018-02-07] MEDS: FAMOTIDINE 20 MG TAB PO SCH ×2 (08:31→20:03)
[2018-02-07] MEDS: SENNOSIDES/DOCUSATE SODIUM TAB PO SCH ×2 (08:31→20:03)
[2018-02-07] MEDS: HYDROGEN PEROXIDE 473 ML BOTTLE TP SCH (08:32)
--- NOTE | 2018-02-07 09:57 | SOAPPROG ---
PNA Progress Note Assessment/Plan: Assessment: POD#1:ex-fix removal and ORIF left tibia plateau fracture and lateral meniscus repair by Dr. Collins Plan: Patient should remain non weight bearing left lower extremity in hinged knee brace locked at 20 degrees of extension at all times No range of motion of the left knee at this time Ice to left knee/calf Pain medicine as needed: RENEWALS MANAGER in use. Monitor vitals Daily dry dressing changes DVT prophylaxis: lovenox 40mg daily Elevation of left leg at heart level as much as possible Ortho stable Subjective: Pt states his left leg is less painful today. He is using the pain pump which seems to be controlling his pain. He states his pain now is about a 6/10. Objective: Vital Signs Temp Pulse Resp BP Pulse Ox 36.5 C 84 14 98/60 L 99 02/07/18 08:00 02/07/18 08:00 02/07/18 08:00 02/07/18 08:00 02/07/18 08:00 Laboratory Results 01/28/18 18:18 01/28/18 18:18 02/06/18 02/07/18 02/08/18 05:59 05:59 05:59 Intake Total 3200 1265 Output Total 3280 1200 200 Balance -80 65 -200 Physical exam LLE: dressing is in place. Clean, dy, & intact. Pt is able to move all toes. NVI. ICD10 Worksheet Patient Problems: Problems Problem Status Onset Tibial plateau fracture, left Acute
[2018-02-07] MEDS: CYCLOBENZAPRINE 10 MG TAB PO PRN (12:30)
[2018-02-07] MEDS: morphINE PCA 30 MG/30 ML PCA IV PRN (12:37)
--- NOTE | 2018-02-07 14:01 | ASMTCMCOM ---
CM Note CM Note Notes: Pt had external fixator removed and ORIF of tibial plateau fracture yesterday. Pt NWB on LLE and is using pain pump currently. PT/OT ordered today so likely will assess pt tomorrow. CM to follow. Date Signed: 02/07/2018 02:00 PM Electronically Signed By:CHEVY Lynch
[2018-02-07] MEDS: oxyCODONE IR 5 MG TAB PO PRN ×2 (16:06→20:02)
[2018-02-07] MEDS: ENOXAPARIN 40 MG/0.4 ML SYR SC SCH (16:08)
[2018-02-08] MEDS: oxyCODONE IR 5 MG TAB PO PRN ×4 (06:04→22:18)
[2018-02-08] MEDS: CYCLOBENZAPRINE 10 MG TAB PO PRN ×2 (06:04→14:21)
[2018-02-08] MEDS: ENOXAPARIN 40 MG/0.4 ML SYR SC SCH (09:34)
[2018-02-08] MEDS: SENNOSIDES/DOCUSATE SODIUM TAB PO SCH ×2 (09:34→22:17)
[2018-02-08] MEDS: METHOCARBAMOL 500 MG TAB PO SCH ×3 (09:34→22:18)
[2018-02-08] MEDS: FAMOTIDINE 20 MG TAB PO SCH ×2 (09:34→22:17)
[2018-02-08] MEDS: POLYETHYLENE GLYCOL 3350 17 GM PKT PO PRN (09:47)
--- NOTE | 2018-02-08 14:45 | ASMTCMCOM ---
CM Note CM Note Notes: Today OT rec home care vs. SNF, PT rec SNF. A barrier to SNF placement is pt does not qualify for Medicaid LTC SNF due to assets so pt would need to private pay for SNF which to date he has not wanted to do. Last admission pt was planning on a d/c to a hotel if he was discharged from [facility] inpatient rehab before his scheduled ex-fix removal and ORIF. Pt has stairs to enter his home and may need to d/c to a hotel w [facility], the HHC would be covered by Medicaid. Date Signed: 02/08/2018 02:45 PM Electronically Signed By:CHEVY Lynch
[2018-02-09] MEDS: CYCLOBENZAPRINE 10 MG TAB PO PRN ×2 (06:04→14:30)
[2018-02-09] MEDS: oxyCODONE IR 5 MG TAB PO PRN ×5 (06:04→22:09)
[2018-02-09] MEDS: METHOCARBAMOL 500 MG TAB PO SCH ×3 (09:15→22:09)
[2018-02-09] MEDS: ENOXAPARIN 40 MG/0.4 ML SYR SC SCH (09:15)
[2018-02-09] MEDS: POLYETHYLENE GLYCOL 3350 17 GM PKT PO PRN (09:15)
[2018-02-09] MEDS: SENNOSIDES/DOCUSATE SODIUM TAB PO SCH ×2 (09:15→22:09)
[2018-02-09] MEDS: FAMOTIDINE 20 MG TAB PO SCH ×2 (09:15→22:09)
[2018-02-09] MEDS: HYDROGEN PEROXIDE 473 ML BOTTLE TP SCH (13:04)
[2018-02-10] MEDS: CYCLOBENZAPRINE 10 MG TAB PO PRN ×2 (05:46→18:46)
[2018-02-10] MEDS: oxyCODONE IR 5 MG TAB PO PRN ×4 (05:47→21:43)
[2018-02-10] MEDS: ENOXAPARIN 40 MG/0.4 ML SYR SC SCH (10:03)
[2018-02-10] MEDS: METHOCARBAMOL 500 MG TAB PO SCH ×3 (10:03→21:44)
[2018-02-10] MEDS: SENNOSIDES/DOCUSATE SODIUM TAB PO SCH ×2 (10:03→21:43)
[2018-02-10] MEDS: FAMOTIDINE 20 MG TAB PO SCH ×2 (10:04→21:45)
--- NOTE | 2018-02-10 13:24 | ASMTCMCOM ---
CM Note CM Note Notes: Patient worked with PT Susy today; she reports that he should be ready for d/c home tomorrow. Although he is very hesitant to try things and takes a long time to prepare (mentally and physically) for his therapies, she feels that he will be able to safely discharge to his studio apartment with the help of home care. He does have some supportive friends who can help him with DME and groceries. He will do the stairs with PT tomorrow. I sent a referral and left a message for [facility]. Hopefully they will be able to see him for PT/OT and a Warehouse Freight Handler. Date Signed: 02/10/2018 01:23 PM Electronically Signed By:Reena Rosenthal RN
[2018-02-11] MEDS: oxyCODONE IR 5 MG TAB PO PRN ×3 (02:16→14:16)
[2018-02-11 07:37] VITALS: BP 106/79
[2018-02-11] MEDS: ENOXAPARIN 40 MG/0.4 ML SYR SC SCH (09:49)
[2018-02-11] MEDS: FAMOTIDINE 20 MG TAB PO SCH (09:49)
[2018-02-11] MEDS: METHOCARBAMOL 500 MG TAB PO SCH ×2 (09:49→16:52)
[2018-02-11] MEDS: SENNOSIDES/DOCUSATE SODIUM TAB PO SCH (09:49)
[2018-02-11] MEDS: HYDROGEN PEROXIDE 473 ML BOTTLE TP SCH (10:18)
[2018-02-11] MEDS ORDERED: DIAZEPAM 2 MG TAB PO PRN (11:22)
--- NOTE | 2018-02-11 11:30 | PDIAF ---
- Diagnosis Diagnosis: left tibia plateau fracture: ex-fix Code Status: Full Code - Medication Management Discharge Medications: Medications to Continue on Transfer Acetaminophen [Tylenol ES 500 mg (*)] 1,000 mg PO Q8 tab 01/16/18 [Last Taken 01/24/18 09:30] Enoxaparin [Lovenox 40 MG (*)] 40 mg SC DAILY syr 01/16/18 [Last Taken 09:30] Polyethylene Glycol 3350 [Miralax 17 gm (*)] 17 gm PO DAILY PRN pkt 01/16/18 [ Last Taken 01/24/18 12:30] Potassium Chloride Po [Klor Packets 20 meq (*)] 20 meq PO DAILY pkt 01/16/18 [ Last Taken 01/24/18 12:30] Sennosides/Docusate Sodium [Senokot-S] 1 - 2 tab PO BID tab 01/16/18 [Last Taken 01/24/18 12:30] Cephalexin [Keflex (*)] 500 mg PO QID 01/24/18 [Last Taken 01/24/18 09:30] Diazepam [Valium 2 MG (*)] 2 mg PO Q6HRS PRN #15 tab 02/11/18 [Last Taken Unknown] Enoxaparin [Lovenox 40 MG (*)] 40 mg SC DAILY #9 syr 02/11/18 [Last Taken Unknown] Methocarbamol [Robaxin 500 mg (*)] 750 mg PO TID #30 tab 02/11/18 [Last Taken Unknown] Ondansetron HCl Pf [Zofran 4 mg Inj (*)] 4 mg IVP Q4HRS PRN #30 vial 02/11/18 [ Last Taken Unknown] oxyCODONE IR [Oxycodone Ir (*)] 5 mg PO Q4-6PRN PRN #28 tab 02/11/18 [Last Taken Unknown] Discharge Medications: Refer to the Discharge Home Medication list for PRN reason. 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 My findings support the fact that the patient is homebound as defined in Home Care Face to Face Continued: [facility] Chapter 7 Medicare Benefits Manual 30.1.1 , The condition of the patient is such that there exists a normal inability to leave home and consequently, leaving home would require a considerable and taxing effort. Isolation Type: None Diet Recommendation: no restrictions on diet Diet Texture: Regular Texture Diet Gan: Not applicable Wound Care Instructions: Daily dry dressing. Activity/Weight Bearing Restrictions: NWB to left extremity. Use of crutches. Additional Instructions: Orthopedics: status post ex-fix removal and ORIF left tibia plateau fracture and lateral meniscus repair by Dr. Collins Patient should remain non weight bearing left lower extremity in hinged knee brace locked at 20 degrees of extension at all times No range of motion of the left knee at this time Ice to left knee/calf Pain medicine as needed Daily dry dressing changes DVT prophylaxis: lovenox 40mg daily Elevation of left leg at heart level as much as possible Follow up with Dr. Collins in 2 weeks post op for staple removal and new xray Please call out office with any questions or concerns - Follow Up Care Current Providers and Referrals: NONE *PRIMARY CARE P,. [Primary Care Provider] - Ulises Collins MD [Medical Doctor] - (Follow up with Dr. Collins post operatively 2 weeks post op after his surgery is complete.)
--- NOTE | 2018-02-11 12:01 | PDDCSUM ---
Discharge Summary Discharge Summary: Patient Name: Anibal Mendes 51 Admission Date: 01/24/18 Discharge Date: 02/11/18 Dictating: Supervising Physician: Dr. Ulises Collins Discharge Dx: Left Tibial Plateau Fx Consultations: PT/OT Procedures: Left tibial plateau ORIF Complications: None. History and Hospital Course: Patient originally presented for a left tibial plateau fx which was ex-fixed by Dr. Collins on 01/24/18 and then later plated for ex-fix removal and ORIF left tibia plateau fracture and lateral meniscus repair by Dr. Collins on 02/06/18. He tolerated both procedures well, was NWB to the extremity and was seen by PT/OT. He has been compliant in lovenox injections and has no signs of DVT upon discharge. No signs of infection. Discharge Plan: -DVT Prophylaxis: Continue lovenox x2 weeks post-op. SCDs. IS. ELSA rice. -Dressing: maintain dry dressing. Not to remove without d/w our office first. Notify if abnormal bleeding/oozing/discharge, change in heat/color around wound site. -PT/OT: strict NWB to left lower extremity. Can unlock brace for AROM of left lower extremity. -F/U in our office for scheduled post-op appts. -Pain control: has pain Rx given today as well as Robaxin and valium prn. -Brace: maintain. -Can D/C once PT/OT and case management clearance. -Advised patient to watch for fever, chills, NVD, change in heat/color of extremity or around wound site, cough, congestion, chest pain, SOB, dyspnea, worsening numbness/tingling and to seek immediate medical attn if seen. Patient seen and discussed in conjunction with Dr. Collins.
--- NOTE | 2018-02-11 12:09 | SOAPPROG ---
SOAP Progress Note Assessment/Plan: Assessment: s/p Left ex-fix removal and ORIF left tibia plateau fracture and lateral meniscus repair by Dr. Collins on 02/06/18. He tolerated both procedures well, was NWB to the extremity and was seen by PT/OT. He has been compliant in lovenox injections and has no signs of DVT upon discharge. No signs of infection. Discharge Plan: -DVT Prophylaxis: Continue lovenox x2 weeks post-op, new Rx given today. SCDs. IS. ELSA rice. -Dressing: maintain dry dressing. Not to remove without d/w our office first. Notify if abnormal bleeding/oozing/discharge, change in heat/color around wound site. -PT/OT: strict NWB to left lower extremity. Can unlock brace for AROM of left lower extremity. -F/U in our office for scheduled post-op appts. Ideally 2 weeks post-op this most recent surgery for first visit. -Pain control: has pain Rx given today as well as Robaxin and valium prn. -Brace: maintain. -Can D/C once PT/OT and case management clearance. -Advised patient to watch for fever, chills, NVD, change in heat/color of extremity or around wound site, cough, congestion, chest pain, SOB, dyspnea, worsening numbness/tingling and to seek immediate medical attn if seen. Patient seen and discussed in conjunction with Dr. Collins. Subjective: Subjective: Alone in room, able to respond to questions. Denies abnormal numbness/tingling, change in heat/color of extremity or of wound sites, cough, congestion, chest pain, SOB, dyspnea, claudication, abnormal bleeding/oozing/discharge, change in distal ROM or strength. Has been compliant in not ambulating and maintaining his brace. Passed flatus and has had a BM. Pain well controlled this morning. Would like to D/C home with use of home health. Objective: Vital Signs Temp Pulse Resp BP Pulse Ox 36.3 C 87 16 106/79 95 02/11/18 07:35 02/11/18 07:35 02/11/18 07:35 02/11/18 07:35 02/11/18 07:35 Laboratory Results 01/28/18 18:18 01/28/18 18:02/10/18 02/11/18 02/12/18 05:59 05:59 05:59 Intake Total 1999 1000 800 Output Total 1700 3425 350 Balance 300 -2425 450 A/o. Able to respond appropriately to questions. NAD. Non-labored breathing. No diaphoresis. M/S: Left LE with no abnormal bleeding/oozing/discharge around dressings. Bandaged and ex-fix no longer in place with no signs of infection. Brace in place and locked in extension. Compartments around wound sites all soft. No change in heat/color of extremity or of around wound sites. Passive ROM in b/l great toe in all planes produced no reproducible pain in lower compartments. DNVI b/l with gross sensation intact and no focal deficits. Brisk cap refill b/ l in lower extremities. AROM: good distal ROM in toes, rest of leg motion limited by pain and swelling. Negative b/l Homans. Calves soft/supple and NTTP b /l. - Pending Discharge Pending Discharge Within 24 Hours: Yes Pending Discharge Date: 02/12/18 Pending Discharge Time: 11:00 ICD10 Worksheet Patient Problems: Problems Problem Status Onset Tibial plateau fracture, left Acute
--- NOTE | 2018-02-12 11:25 | ASDISCHSUM ---
Discharge Information Plan Status:Home with Home Health Medically Cleared to Leave: Discharge Date:02/11/2018 06:17 PM D/C Disposition:Home Health Service ADT D/C Disposition:Home, Routine, Self-Care Projected Discharge Date:02/11/2018 11:00 AM Transportation at D/C: Discharge Delay Reason: Follow-Up Date:02/11/2018 11:00 AM Discharge Slot: Final Diagnosis: Placement Information Referral Type:*Home Health Care Services Referral ID:[id number] Provider Name:[facility] Care Address 1:[address] Address 2: City:[place] Selection Factors: State:[place] Patient Contact Information Contact Name:LETI Relationship:Friend Address:[address] [facility] [address] Work Phone: [facility]:[place] Alternate Phone: State/Zip Code:[place] [address] Email: Financial Information Financial Class:Medicaid Primary Plan Desc:MEDICAID HEALTH FIRST RECORDING ARTIST Primary Plan Number:[id number] Secondary Plan Desc: Secondary Plan Number: Assessment Information [facility] CM Progress Note CM Note CM Note Notes: Pt admitted last night, from [facility] Inpatient Rehab, for scheduled surgery which was canceled due to swelling. Per MD, plan for surgery to be rescheduled 02/05-02/07. Dc order received back to [facility]. Spoke with Aleida, at [facility]; unsure if they will be taking pt back. Aleida states she will need to discuss with Rehab Team. Updated RN & clinical trial coordinator. CM will follow. Date Signed: 01/25/2018 12:29 PM Electronically Signed By:Adrienne Piña RN [facility] CM Progress Note CM Note CM Note Notes: Spoke with Aleida, at [facility]; unable to take pt back. Discussed with Mary ANDERSEN Director. Updated RN & pt. Pt is upset & crying; states he is not sure where he will go. Pt lives alone, in a studio apartment in [place], with little to no support. 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 Pt states he has approximately 10 small steep steps to enter his home & is not sure how he will be able to do that with external fixation in place. Past CM notes state a ULTC was previously done for pt, during his last admission & pt had an [facility] market development specialist, Nicole [phone], assigned. At that time, [facility], but pt was unable to go because he did not qualify for [employer] Medicaid & therefore had no SNF coverage. Updated PA. Dc order canceled. Pt's surgery tentatively scheduled for 02/06/18. Dc plan TBD CM will follow. CM will continue to follow. Date Signed: 01/25/2018 04:10 PM Electronically Signed By:Adrienne Piña RN [facility] CM Progress Note CM Note CM Note Notes: Pt surgery scheduled 02/05-02/07, pt swelling has to decrease. Pt likely has swelling due to the therapy he was participating in at the [facility] inpatient rehab? Pt has leg elevated here now and is limiting activity. CM to follow. Date Signed: 01/28/2018 05:27 PM Electronically Signed By:CHEVY Lynch [facility] CM Progress Note CM Note CM Note Notes: Pt surgery scheduled 02/06/18. Pt plans to d/c home when medically stable after surgery. Pt has support of a bible study friend when he d/c home to assist with his care and needs. Pt connected with spiritual care services today. Date Signed: 01/29/2018 03:26 PM Electronically Signed By:CHEVY Lynch [facility] CM Progress Note CM Note CM Note Notes: Chart reviewed. Met with patient to review discharge plan of care. He is scheduled for surgery next Sunday and will remain hospitalized until then. He states he is going to call the [employer] to secure equipment for his home and that he has a friend that is retired who will come and cook for him and help with university relations director. Likely will need other home health services. Will also provide him with meals on wheels information. CM to follow. Date Signed: 01/31/2018 02:22 PM Electronically Signed By:No Isidro RN [facility] CM Progress Note CM Note CM Note Notes: To remain in hospital until his surgery next Sunday. May need HC and Meals on Wheels set up. Date Signed: 02/03/2018 11:51 AM Electronically Signed By:Kathie Nieves LCSW [facility] CM Progress Note CM Note CM Note Notes: Chart reviewed. Surgery 02/05 or 02/06. CM provided him with Meals on Wheels information and [facility] [employer] Book for services in the community. CM to follow. Likely to need home care and plan will be clearer after surgery. CM to follow. Date Signed: 02/04/2018 01:31 PM Electronically Signed By:No Isidro RN [facility] CM Progress Note CM Note CM Note Notes: Pt had external fixator removed and ORIF of tibial plateau fracture yesterday. Pt NWB on LLE and is using pain pump currently. PT/OT ordered today so likely will assess pt tomorrow. CM to follow. Date Signed: 02/07/2018 02:00 PM Electronically Signed By:CHEVY Lynch [facility] CM Progress Note CM Note CM Note Notes: Today OT rec home care vs. SNF, PT rec SNF. A barrier to SNF placement is pt does not qualify for Medicaid LT SNF due to assets so pt would need to private pay for SNF which to date he has not wanted to do. Last admission pt was planning on a d/c to a hotel if he was discharged from [facility] inpatient rehab before his scheduled ex-fix removal and ORIF. Pt has stairs to enter his home and may need to d/c to a hotel w [facility], the [facility] would be covered by Medicaid. Date Signed: 02/08/2018 02:45 PM Electronically Signed By:CHEVY Lynch [facility] CM Progress Note CM Note CM Note Notes: Patient worked with TAYO Jain today; she reports that he should be ready for d/c home tomorrow. Although he is very hesitant to try things and takes a long time to prepare (mentally and physically) for his therapies, she feels that he will be able to safely discharge to his stud apartment with the help of home care. He does have some supportive friends who can help him with DME and groceries. He will do the stairs with PT tomorrow. I sent a referral and left a message for [facility]. Hopefully they will be able to see him for PT/OT and a Sub Acute Care Nurse. Date Signed: 02/10/2018 01:23 PM Electronically Signed By:Reena Rosenthal RN Case Management Discharge Plan Note Case Management Discharge Discharge Order Complete? Answers: Yes Patient to Obtain Answers: Independently Medications Transportation Arranged Answers: Family/Friends Discharge Comments Notes: Pt will dc home today and will be followed by [facility] (PT/OT/SW). Met w/pt to discuss and he is in agreement w/[facility] plan. Confirmed w/Brenda at [facility] that they could start services tomorrow. Gave Brenda pt's physical address: [address] [place] [address], [address] [place] [address] and confirmed ph #. [place]/info available on [employer]. Pt has friend coming to get him at 5 PM. Discussed w/RN and PA. Date Signed: 02/11/2018 04:37 PM Electronically Signed By:Rachelle Carty RN Intervention Information
== END 2018-02-11 18:17 | disposition home health service (06) | DRG 313 ==
LOC: OBSVTOIN 15:52 → INTOOBSV 15:52 → F3N 15:52
PROVIDERS: ADMIT Internal Medicine; ATTEND Orthopaedic Surgery Sports Medicine
PROC: 0SQD0ZZ Repair Left Knee Joint, Open Approach (ICD-10-PCS; principal; 2018-02-06 13:15)
PROC: 0QSH04Z Reposition Left Tibia with Internal Fixation Device, Open Approach (ICD-10-PCS; principal; 2018-02-06 13:15)
PROC: 0QPH05Z Removal of External Fixation Device from Left Tibia, Open Approach (ICD-10-PCS; principal; 2018-02-06 13:15)
PROC: 0QUH0KZ Supplement Left Tibia with Nonautologous Tissue Substitute, Open Approach (ICD-10-PCS; principal; 2018-02-06 13:15)
DX: S82.142A Displaced bicondylar fracture of left tibia, initial encounter for closed fracture (principal); M25.552 Pain in left hip; S83.282A Other tear of lateral meniscus, current injury, left knee, initial encounter
CPT/HCPCS: 97110-GP; 97116-GP; 97163-GP; 97166-GO; 97530-GP; 97535-GO; C1713; C1762; C1769; G0378; J0690; J1100; J1650; J2270; J2405; J2704; J3360